=== PATIENT | female | born 1945 | race Caucasian/White ===

== ENCOUNTER 2018-02-13 08:04 | Emergency (ER) | payer MEDICARE ==
[~2018-02-13] VITALS: Ht 154.9 cm; Wt 89.2 kg
[~2018-02-13 08:04] MED LIST: ALLO100T PO; ASPI81TA47 PO; CETI-102 PO; DILT180C66 PO; ESTR0.5T4 PO; GABA300C PO; GLIP10TA3 PO; HYDR-565 PO; LANTUS SUBCUT; LOSA100T3 PO; MEDR2.5T PO; METF500T4 PO; OMEP-50 PO; PRAV40TA PO; TRAZ-143 PO
[2018-02-13 09:48] LABS: BASOPHILS # (AUTO) 0.1 X10'3 (0-0.2); BASOPHILS % (AUTO) 0.5 % (0-1); EOSINOPHILS % (AUTO) 0 % (0-6); HEMOGLOBIN 11.6 g/dl (12.0-16.0); LYMPHOCYTES # (AUTO) 3.4 X10'3 (1.1-4.8); LYMPHOCYTES % (AUTO) 20.7 % (21-51); MEAN CORPUSCULAR HEMOGLOBIN 32.5 PG (27.0-31.0); MEAN CORPUSCULAR HGB CONC 34.2 % (33.0-36.5); MEAN PLATELET VOLUME 8.8 FL (7.4-10.4); MONOCYTES # (AUTO) 0.7 X10'3 (0-0.9); MONOCYTES % (AUTO) 4.1 % (2-12); NEUTROPHILS # (AUTO) 12.2 X10'3 (1.8-7.7); NEUTROPHILS % (AUTO) 74.7 % (42-75); PLATELET COUNT 206 X10'3 (140-440); RED BLOOD COUNT 3.57 X10'6 (4.20-5.60); WHITE BLOOD COUNT 16.3 X10'3 (4.5-11.0)
[2018-02-13 09:58] LABS: PARTIAL THROMBOPLASTIN TIME 23 SECONDS (22-32); PROTHROMBIN TIME 10.8 SECONDS (9.0-12.0)
[2018-02-13 10:04] LABS: ALBUMIN 3.6 G/DL (3.4-5.0); ANION GAP 14 (8-16); BLOOD UREA NITROGEN 32 MG/DL (7-18); BUN/CREATININE RATIO 20.3 (6.6-38.0); CALCIUM 9.1 MG/DL (8.5-10.1); CHLORIDE 104 MMOL/L (99-107); CREATININE 1.58 MG/DL (0.40-0.90); GLUCOSE 338 MG/DL (70-104); POTASSIUM 5.3 MMOL/L (3.5-5.1); SODIUM 140 MMOL/L (135-145); TOTAL CARBON DIOXIDE 22.5 MMOL/L (24-32); eGFR 32 ML/MIN
[2018-02-13] MEDS ORDERED: normal saline 1000ML IV soln IVB ONE (10:35)
[2018-02-13] MEDS ORDERED: sodium polystyrene sulfonate 15gm/60ml oral suspension PO ONE (10:35)
[2018-02-13] MEDS: normal saline 1000ml 1,000 ML IV SCH ×2 (11:07→12:03)
[2018-02-13 12:02] VITALS: BP 157/75
== END 2018-02-13 12:03 | disposition home or self-care (01) ==
LOC: ER 08:04
DX: S00.83XA Contusion of other part of head, initial encounter (principal); E87.5 Hyperkalemia; E11.22 Type 2 diabetes mellitus with diabetic chronic kidney disease; N18.3 Chronic kidney disease, stage 3 (moderate); K21.9 Gastro-esophageal reflux disease without esophagitis; J44.9 Chronic obstructive pulmonary disease, unspecified; M54.2 Cervicalgia; M25.511 Pain in right shoulder; E78.00 Pure hypercholesterolemia, unspecified; Z79.4 Long term (current) use of insulin; Z98.890 Other specified postprocedural states; W06.XXXA Fall from bed, initial encounter; Y93.89 Activity, other specified; Y92.89 Other specified places as the place of occurrence of the external cause; Y99.8 Other external cause status
CPT/HCPCS: 36415; 70450; 72125; 73030; 80048; 85025; 85610; 85730; 93005; 96360; 99285; J7030

== ENCOUNTER 2018-10-25 09:06 | Day surgery (SDC) | payer MEDICARE ==
[~2018-10-25 09:06] MED LIST changes: +HYDR-4353 PO; -HYDR-565 PO; +METF-436 PO; -METF500T4 PO; -TRAZ-143 PO; +TRAZ-218 PO
[2018-10-25] MEDS ORDERED: BECL7.3A INH (15:07)
== END 2018-10-25 11:48 | disposition home or self-care (01) ==
LOC: WOUND CARE 09:06
PROVIDERS: ATTEND Surgery
DX: E11.621 Type 2 diabetes mellitus with foot ulcer (principal); L97.411 Non-pressure chronic ulcer of right heel and midfoot limited to breakdown of skin; L97.421 Non-pressure chronic ulcer of left heel and midfoot limited to breakdown of skin; L97.521 Non-pressure chronic ulcer of other part of left foot limited to breakdown of skin; E11.22 Type 2 diabetes mellitus with diabetic chronic kidney disease; I12.9 Hypertensive chronic kidney disease with stage 1 through stage 4 chronic kidney disease, or unspecified chronic kidney disease; N18.3 Chronic kidney disease, stage 3 (moderate); E11.42 Type 2 diabetes mellitus with diabetic polyneuropathy; M10.9 Gout, unspecified; G47.30 Sleep apnea, unspecified; J44.9 Chronic obstructive pulmonary disease, unspecified; K21.9 Gastro-esophageal reflux disease without esophagitis; E78.5 Hyperlipidemia, unspecified; Z87.891 Personal history of nicotine dependence; Z90.49 Acquired absence of other specified parts of digestive tract
CPT/HCPCS: 36416; 82948; 97597; A6021; A6196; A6206

== ENCOUNTER 2018-11-01 09:00 | Day surgery (SDC) | payer MEDICARE ==
[~2018-11-01 09:00] MED LIST changes: -ALLO100T PO; +BECL7.3A INH; -CETI-102 PO; -DILT180C66 PO; -GABA300C PO; -GLIP10TA3 PO; -MEDR2.5T PO; -METF-436 PO; -PRAV40TA PO
[2018-11-01] MEDS ORDERED: LIDOcaine/PRILOcaine 5gm cream TP ONE (10:09)
== END 2018-11-01 11:15 | disposition home or self-care (01) ==
LOC: WOUND CARE 09:00
PROVIDERS: ATTEND Surgery
DX: E11.621 Type 2 diabetes mellitus with foot ulcer (principal); L97.411 Non-pressure chronic ulcer of right heel and midfoot limited to breakdown of skin; L97.422 Non-pressure chronic ulcer of left heel and midfoot with fat layer exposed; L97.521 Non-pressure chronic ulcer of other part of left foot limited to breakdown of skin; L97.512 Non-pressure chronic ulcer of other part of right foot with fat layer exposed; E11.22 Type 2 diabetes mellitus with diabetic chronic kidney disease; I12.9 Hypertensive chronic kidney disease with stage 1 through stage 4 chronic kidney disease, or unspecified chronic kidney disease; N18.3 Chronic kidney disease, stage 3 (moderate); E11.42 Type 2 diabetes mellitus with diabetic polyneuropathy; M10.9 Gout, unspecified; G47.30 Sleep apnea, unspecified; J44.9 Chronic obstructive pulmonary disease, unspecified; K21.9 Gastro-esophageal reflux disease without esophagitis; E78.5 Hyperlipidemia, unspecified; Z87.891 Personal history of nicotine dependence; Z90.49 Acquired absence of other specified parts of digestive tract
CPT/HCPCS: 36416; 82948; 97597; A4414; A6021

== ENCOUNTER 2018-11-10 05:35 | Inpatient (IN) | payer MEDICARE ==
[~2018-11-10] VITALS: Ht 157.5 cm; Wt 90.9 kg
[2018-11-10] VITALS (17 sets, daily range): BP systolic 104–150; BP diastolic 39–73
[2018-11-10] MEDS ORDERED: octreotide inj. 1,250 MCG in normal saline 250ml IV soln 250 ML IV ONE (05:45)
[2018-11-10] MEDS ORDERED: normal saline 1000ML IV soln IV ONE (05:45)
[2018-11-10] MEDS ORDERED: tranexamic acid 100mg/ml inj. IV ONE ×2 (05:50→06:45)
[2018-11-10] MEDS ORDERED: pantoprazole 40 MG vial IV ONE ×2 (05:50→06:50)
[2018-11-10] MEDS ORDERED: tranexamic acid inj. 1,000 MG in normal saline 100ml IV soln 90 ML IV ONE (05:55)
[2018-11-10] MEDS ORDERED: ondansetron/PF 4mg/2ml inj IV ONE (05:55)
[2018-11-10 06:00] LABS: MEAN CORPUSCULAR HEMOGLOBIN 30.8 PG (27.0-31.0); MEAN CORPUSCULAR HGB CONC 33.1 % (33.0-36.5); MEAN PLATELET VOLUME 10.9 FL (7.4-10.4); PLATELET COUNT 214 X10'3 (140-440); RED BLOOD COUNT 2.27 X10'6 (4.20-5.60); RED CELL DISTRIBUTION WIDTH 13.9 % (11.5-14.5)
[2018-11-10] MEDS: pantoprazole 40MG/NS 100ML BAG 100 ML IV SCH ×5 (06:00→22:28)
[2018-11-10 06:21] LABS: ALANINE AMINOTRANSFERASE 16 U/L (12-78); ALBUMIN 2.7 G/DL (3.4-5.0); ALBUMIN/GLOBULIN RATIO 0.9 (1.1-1.5); ALKALINE PHOSPHATASE 32 IU/L (46-116); ANION GAP 15 (8-16); ASPARTATE AMINO TRANSFERASE 10 U/L (10-37); BILIRUBIN,TOTAL 0.3 MG/DL (0.1-1.0); BLOOD UREA NITROGEN 96 MG/DL (7-18); BUN/CREATININE RATIO 39.7 (6.6-38.0); CALCIUM 7.9 MG/DL (8.5-10.1); CHLORIDE 106 MMOL/L (99-107); CREATININE 2.42 MG/DL (0.40-0.90); GLUCOSE 333 MG/DL (70-104); POTASSIUM 4.6 MMOL/L (3.5-5.1); SODIUM 138 MMOL/L (135-145); TOTAL CARBON DIOXIDE 16.9 MMOL/L (24-32); TOTAL PROTEIN 5.6 G/DL (6.4-8.2); eGFR 20 ML/MIN
[2018-11-10 06:29] LABS: INR 1.2 INR; PARTIAL THROMBOPLASTIN TIME 21 SECONDS (22-32); PROTHROMBIN TIME 11.7 SECONDS (9.0-12.0); WHITE BLOOD COUNT 26.7 X10'3 (4.5-11.0)
[2018-11-10 06:30] LABS: HEMATOCRIT 21.1 % (35.0-45.0)
[2018-11-10 06:32] LABS: NUCLEATED RED BLOOD CELLS 2 /100WBC (0-0); PLATELET ESTIMATE NORMAL; TOTAL CELLS COUNTED 100
[2018-11-10 06:33] LABS: ANISOCYTOSIS 1+; LARGE PLATELETS MODERATE; POLYCHROMASIA FEW
[2018-11-10] MEDS ORDERED: LORazepam 2 mg/ml vial IV ONE (07:35)
[2018-11-10] MEDS ORDERED: PANT-47 PO (08:34)
[2018-11-10] MEDS ORDERED: KEN0.1O TP (08:34)
[2018-11-10] MEDS ORDERED: DILT180C53 PO (08:34)
[2018-11-10] MEDS ORDERED: FLUO15OI2 TP (08:34)
[2018-11-10] MEDS ORDERED: MECL12.584 PO (08:34)
[2018-11-10] MEDS ORDERED: ALLO100T PO (08:34)
[2018-11-10] MEDS ORDERED: ALBU6.7H INH (08:34)
[2018-11-10] MEDS ORDERED: MEDR2.5T7 PO (08:34)
[2018-11-10] MEDS ORDERED: acetaminophen 325mg tablet PO PRN ×2 (09:10)
[2018-11-10] MEDS ORDERED: potassium Cl 40MEQ/NS 500ml 500 ML IV PRN ×2 (09:10)
[2018-11-10] MEDS ORDERED: magnesium 4gm in 100ml NS 100 ML IV PRN (09:10)
[2018-11-10] MEDS ORDERED: magnesium Cl slow-release 64mg tablet PO PRN (09:10)
[2018-11-10] MEDS ORDERED: docusate sod 100mg capsule PO PRN (09:10)
[2018-11-10] MEDS ORDERED: ondansetron/PF 4mg/2ml inj IV PRN (09:10)
[2018-11-10] MEDS ORDERED: potassium Cl 20 mEq SR tablet PO PRN ×2 (09:10)
[2018-11-10] MEDS ORDERED: dextrose ORAL solution 15 GM/59 ML bottle PO PRN ×2 (09:25)
[2018-11-10] MEDS ORDERED: glucagon, human recombinant 1mg kit SUBCUT PRN (09:25)
[2018-11-10] MEDS ORDERED: MESSAGE TO PHARMACY PO ONE (09:25)
[2018-11-10] MEDS ORDERED: dextrose 50%-water 50ml dispensing syringe IV PRN ×2 (09:25)
[2018-11-10 09:38] LABS: HEMOGLOBIN A1C 9.5 % (4.5-6.2)
[2018-11-10 09:53] LABS: CLARITY,URINE CLEAR (Clear); COLOR,URINE STRAW (Yellow); PH,URINE 5.5 (4.8-8.0); UA COLLECTION TYPE FOLEY CATH
[2018-11-10 09:54] LABS: GLUCOSE, URINE NEGATIVE (Neg); KETONES,URINE NEGATIVE (Neg); LEUKOCYTE ESTERASE ,URINE NEGATIVE (Neg); NITRITES, URINE NEGATIVE (Neg); OCCULT BLOOD,URINE NEGATIVE (Neg); PROTEIN,URINE NEGATIVE (Neg); UROBILINOGEN,URINE 0.2 E.U/dL (0.2-1.0)
[2018-11-10] MEDS ORDERED: pantoprazole 40MG/NS 100ML BAG 100 ML IV SCH (11:00)
[2018-11-10] MEDS ORDERED: LIDOcaine Viscous 15ml cup ONE (14:01)
[2018-11-10] MEDS ORDERED: MIDAZolam 5mg/5ml vial ONE (14:01)
[2018-11-10] MEDS ORDERED: fentaNYL/PF 50MCG/1 ML 2ML syringe ONE (14:01)
[2018-11-10] MEDS ORDERED: epiNEPHrine 0.1mg/ml 10ml syringe ONE (16:06)
[2018-11-10 18:11] LABS: BASOPHILS # (AUTO) 0.1 X10'3 (0-0.2); BASOPHILS % (AUTO) 0.4 % (0-1); EOSINOPHILS % (AUTO) 0 % (0-6); HEMATOCRIT 27.3 % (35.0-45.0); LYMPHOCYTES # (AUTO) 2.8 X10'3 (1.1-4.8); MEAN CORPUSCULAR HEMOGLOBIN 29.6 PG (27.0-31.0); MEAN CORPUSCULAR HGB CONC 32.9 % (33.0-36.5); MEAN PLATELET VOLUME 10.6 FL (7.4-10.4); MONOCYTES # (AUTO) 1.3 X10'3 (0-0.9); MONOCYTES % (AUTO) 4.6 % (2-12); NEUTROPHILS # (AUTO) 23.7 X10'3 (1.8-7.7); PLATELET COUNT 199 X10'3 (140-440); RED BLOOD COUNT 3.04 X10'6 (4.20-5.60); RED CELL DISTRIBUTION WIDTH 17.3 % (11.5-14.5)
[2018-11-10 18:26] LABS: WHITE BLOOD COUNT 27.9 X10'3 (4.5-11.0)
[2018-11-10] MEDS: normal saline 1000ml 1,000 ML IV SCH ×2 (18:30→19:11)
[2018-11-10] MEDS: piperacillin/tazo 3.375gm/50ml 50 ML IV SCH ×2 (18:31→23:43)
[2018-11-10] MEDS: HYDROcodone/acetaminophen 5mg/325mg tablet PO PRN (18:49)
[2018-11-10] MEDS: budesonide 0.5mg/2ml UD nebule IH SCH (20:03)
[2018-11-10] MEDS: insulin glargine (Lantus) pen - multi-dose SQ SCH (21:00)
[2018-11-10] MEDS: morphine 2 MG/ML inj. syringe IV PRN (21:16)
[2018-11-10] MEDS: insulin Lispro (HumaLOG) vial - multi-dose SQ SCH (22:25)
[2018-11-10] MEDS: temazepam 15mg capsule PO PRN (22:28)
[2018-11-11] VITALS (8 sets, daily range): BP systolic 122–161; BP diastolic 47–97
[2018-11-11] MEDS: pantoprazole 40MG/NS 100ML BAG 100 ML IV SCH ×5 (04:00→21:56)
[2018-11-11] MEDS: normal saline 1000ml 1,000 ML IV SCH ×2 (05:29→16:34)
[2018-11-11 06:52] LABS: BASOPHILS # (AUTO) 0.1 X10'3 (0-0.2); BASOPHILS % (AUTO) 0.2 % (0-1); EOSINOPHILS # (AUTO) 0.3 X10'3 (0-0.9); EOSINOPHILS % (AUTO) 1.1 % (0-6); HEMOGLOBIN 7.3 g/dl (12.0-16.0); LYMPHOCYTES # (AUTO) 3.1 X10'3 (1.1-4.8); LYMPHOCYTES % (AUTO) 13.4 % (21-51); MEAN CORPUSCULAR HEMOGLOBIN 30.1 PG (27.0-31.0); MEAN CORPUSCULAR HGB CONC 33.6 % (33.0-36.5); MEAN CORPUSCULAR VOLUME 89.6 FL (78-98); MEAN PLATELET VOLUME 10.1 FL (7.4-10.4); MONOCYTES # (AUTO) 1.2 X10'3 (0-0.9); MONOCYTES % (AUTO) 5.1 % (2-12); NEUTROPHILS # (AUTO) 18.6 X10'3 (1.8-7.7); NEUTROPHILS % (AUTO) 80.2 % (42-75); PLATELET COUNT 183 X10'3 (140-440); RED BLOOD COUNT 2.42 X10'6 (4.20-5.60); RED CELL DISTRIBUTION WIDTH 17.2 % (11.5-14.5); WHITE BLOOD COUNT 23.2 X10'3 (4.5-11.0)
[2018-11-11 06:55] LABS: ALANINE AMINOTRANSFERASE 16 U/L (12-78); ALBUMIN 2.8 G/DL (3.4-5.0); ALBUMIN/GLOBULIN RATIO 0.9 (1.1-1.5); ALKALINE PHOSPHATASE 29 IU/L (46-116); ANION GAP 14 (8-16); ASPARTATE AMINO TRANSFERASE 16 U/L (10-37); BILIRUBIN,TOTAL 0.4 MG/DL (0.1-1.0); BLOOD UREA NITROGEN 65 MG/DL (7-18); BUN/CREATININE RATIO 36.1 (6.6-38.0); CALCIUM 7.7 MG/DL (8.5-10.1); CHLORIDE 112 MMOL/L (99-107); GLUCOSE 263 MG/DL (70-104); MAGNESIUM 1.9 MG/DL (1.5-2.4); POTASSIUM 4.8 MMOL/L (3.5-5.1); SODIUM 145 MMOL/L (135-145); TOTAL CARBON DIOXIDE 18.6 MMOL/L (24-32); TOTAL PROTEIN 5.8 G/DL (6.4-8.2); eGFR 28 ML/MIN
[2018-11-11 07:17] LABS: HEMATOCRIT 21.7 % (35.0-45.0)
[2018-11-11] MEDS: morphine 2 MG/ML inj. syringe IV PRN ×2 (07:44→19:02)
[2018-11-11] MEDS: piperacillin/tazo 3.375gm/50ml 50 ML IV SCH ×2 (08:00→16:24)
[2018-11-11] MEDS: losartan 50mg tablet PO SCH (08:00)
[2018-11-11] MEDS: budesonide 0.5mg/2ml UD nebule IH SCH ×2 (08:00→20:00)
[2018-11-11] MEDS: K and/or MAG REPLACEMENT MC SCH (08:00)
[2018-11-11] MEDS: HYDROcodone/acetaminophen 5mg/325mg tablet PO PRN ×3 (09:26→21:54)
[2018-11-11 10:07] LABS: ANISOCYTOSIS 1+; NUCLEATED RED BLOOD CELLS 1 /100WBC (0-0); PLATELET ESTIMATE NORMAL; POLYCHROMASIA 2+; TOTAL CELLS COUNTED 100
[2018-11-11] MEDS: insulin Lispro (HumaLOG) vial - multi-dose SQ SCH ×2 (17:16→21:49)
[2018-11-11 17:20] LABS: HEMATOCRIT 23.8 % (35.0-45.0); HEMOGLOBIN 7.9 g/dl (12.0-16.0); MEAN CORPUSCULAR HEMOGLOBIN 29.4 PG (27.0-31.0); PLATELET COUNT 153 X10'3 (140-440); RED BLOOD COUNT 2.67 X10'6 (4.20-5.60); RED CELL DISTRIBUTION WIDTH 17.4 % (11.5-14.5); WHITE BLOOD COUNT 16.4 X10'3 (4.5-11.0)
[2018-11-11] MEDS: insulin glargine (Lantus) pen - multi-dose SQ SCH (21:52)
[2018-11-11] MEDS: temazepam 15mg capsule PO PRN (21:54)
[2018-11-12] MEDS: piperacillin/tazo 3.375gm/50ml 50 ML IV SCH ×4 (00:32→23:48)
[2018-11-12 03:00] VITALS: BP 132/54
[2018-11-12] MEDS: pantoprazole 40MG/NS 100ML BAG 100 ML IV SCH ×6 (03:11→23:48)
[2018-11-12] MEDS: HYDROcodone/acetaminophen 5mg/325mg tablet PO PRN ×2 (04:08→14:30)
[2018-11-12 06:10] LABS: BASOPHILS # (AUTO) 0.1 X10'3 (0-0.2); BASOPHILS % (AUTO) 0.4 % (0-1); EOSINOPHILS # (AUTO) 0.2 X10'3 (0-0.9); EOSINOPHILS % (AUTO) 1.4 % (0-6); HEMATOCRIT 25.3 % (35.0-45.0); HEMOGLOBIN 8.3 g/dl (12.0-16.0); LYMPHOCYTES # (AUTO) 3.1 X10'3 (1.1-4.8); LYMPHOCYTES % (AUTO) 17.7 % (21-51); MEAN CORPUSCULAR HEMOGLOBIN 29.5 PG (27.0-31.0); MEAN CORPUSCULAR HGB CONC 32.9 % (33.0-36.5); MEAN CORPUSCULAR VOLUME 89.8 FL (78-98); MEAN PLATELET VOLUME 9.6 FL (7.4-10.4); MONOCYTES # (AUTO) 0.8 X10'3 (0-0.9); MONOCYTES % (AUTO) 4.5 % (2-12); NEUTROPHILS # (AUTO) 13.2 X10'3 (1.8-7.7); PLATELET COUNT 155 X10'3 (140-440); RED BLOOD COUNT 2.82 X10'6 (4.20-5.60); RED CELL DISTRIBUTION WIDTH 17.5 % (11.5-14.5); WHITE BLOOD COUNT 17.4 X10'3 (4.5-11.0)
[2018-11-12 06:21] LABS: ALANINE AMINOTRANSFERASE 16 U/L (12-78); ALBUMIN 3.1 G/DL (3.4-5.0); ALKALINE PHOSPHATASE 37 IU/L (46-116); ANION GAP 13 (8-16); ASPARTATE AMINO TRANSFERASE 19 U/L (10-37); BILIRUBIN,TOTAL 0.6 MG/DL (0.1-1.0); BLOOD UREA NITROGEN 32 MG/DL (7-18); BUN/CREATININE RATIO 22.7 (6.6-38.0); CALCIUM 8.6 MG/DL (8.5-10.1); CHLORIDE 112 MMOL/L (99-107); CHOL/HDL RATIO 4.3 (0.00-4.99); CHOLESTEROL 119 MG/DL (0-200); CREATININE 1.41 MG/DL (0.40-0.90); GLUCOSE 179 MG/DL (70-104); HDL CHOLESTEROL 28 MG/DL (35-60); LDL CHOLESTEROL 52 MG/DL (50-100); MAGNESIUM 1.9 MG/DL (1.5-2.4); POTASSIUM 3.9 MMOL/L (3.5-5.1); SODIUM 146 MMOL/L (135-145); TOTAL PROTEIN 6.3 G/DL (6.4-8.2); TRIGLYCERIDES 272 MG/DL (20-135); eGFR 37 ML/MIN
[2018-11-12 07:00] VITALS: BP 177/68
[2018-11-12] MEDS: budesonide 0.5mg/2ml UD nebule IH SCH ×2 (07:35→21:02)
[2018-11-12] MEDS: albuterol 2.5 MG/3 ML nebule NEB PRN (07:36)
[2018-11-12] MEDS: K and/or MAG REPLACEMENT MC SCH (08:00)
[2018-11-12 08:14] LABS: ANISOCYTOSIS 1+; LARGE PLATELETS FEW; NUCLEATED RED BLOOD CELLS 2 /100WBC (0-0); PLATELET ESTIMATE NORMAL; POIKILOCYTOSIS FEW; POLYCHROMASIA 1+; TARGET CELLS FEW; TOTAL CELLS COUNTED 100
[2018-11-12] MEDS: losartan 50mg tablet PO SCH (09:00)
[2018-11-12] MEDS: insulin Lispro (HumaLOG) vial - multi-dose SQ SCH ×3 (09:09→19:08)
[2018-11-12 12:06] VITALS: BP 134/47
[2018-11-12] MEDS: normal saline 1000ml 1,000 ML IV SCH (12:55)
[2018-11-12] MEDS ORDERED: PREG100C PO ×2 (14:43)
[2018-11-12] MEDS ORDERED: pregabalin 75mg capsule PO ONE (14:45)
[2018-11-12] MEDS ORDERED: pregabalin 25mg capsule PO ONE (14:55)
[2018-11-12 15:00] VITALS: BP 132/44
[2018-11-12 18:45] VITALS: BP 142/51
[2018-11-12] MEDS: morphine 2 MG/ML inj. syringe IV PRN (19:09)
[2018-11-12] MEDS: insulin glargine (Lantus) pen - multi-dose SQ SCH (21:07)
[2018-11-12] MEDS: pregabalin 75mg capsule PO SCH (21:09)
[2018-11-12] MEDS: pregabalin 25mg capsule PO SCH (21:09)
[2018-11-12] MEDS: temazepam 15mg capsule PO PRN (21:09)
[2018-11-12 22:15] VITALS: BP 131/51
[2018-11-13] VITALS (7 sets, daily range): BP systolic 141–175; BP diastolic 49–66
[2018-11-13] MEDS: pantoprazole 40MG/NS 100ML BAG 100 ML IV SCH ×4 (04:19→19:32)
[2018-11-13] MEDS: normal saline 1000ml 1,000 ML IV SCH ×2 (04:19→19:32)
[2018-11-13 05:26] LABS: BASOPHILS % (AUTO) 0.2 % (0-1); EOSINOPHILS # (AUTO) 0.1 X10'3 (0-0.9); EOSINOPHILS % (AUTO) 0.9 % (0-6); HEMATOCRIT 24.3 % (35.0-45.0); LYMPHOCYTES # (AUTO) 3.9 X10'3 (1.1-4.8); LYMPHOCYTES % (AUTO) 27.9 % (21-51); MEAN CORPUSCULAR HEMOGLOBIN 29.9 PG (27.0-31.0); MEAN CORPUSCULAR HGB CONC 33.1 % (33.0-36.5); MEAN CORPUSCULAR VOLUME 90.4 FL (78-98); MEAN PLATELET VOLUME 9.6 FL (7.4-10.4); MONOCYTES # (AUTO) 0.7 X10'3 (0-0.9); MONOCYTES % (AUTO) 5.1 % (2-12); NEUTROPHILS # (AUTO) 9.3 X10'3 (1.8-7.7); NEUTROPHILS % (AUTO) 65.9 % (42-75); PLATELET COUNT 143 X10'3 (140-440); RED BLOOD COUNT 2.69 X10'6 (4.20-5.60); RED CELL DISTRIBUTION WIDTH 17.4 % (11.5-14.5); WHITE BLOOD COUNT 14.1 X10'3 (4.5-11.0)
[2018-11-13 05:43] LABS: ALANINE AMINOTRANSFERASE 21 U/L (12-78); ALKALINE PHOSPHATASE 32 IU/L (46-116); ANION GAP 11 (8-16); ASPARTATE AMINO TRANSFERASE 25 U/L (10-37); BILIRUBIN,TOTAL 0.6 MG/DL (0.1-1.0); BLOOD UREA NITROGEN 19 MG/DL (7-18); BUN/CREATININE RATIO 14.1 (6.6-38.0); CALCIUM 8.4 MG/DL (8.5-10.1); CHLORIDE 111 MMOL/L (99-107); CREATININE 1.35 MG/DL (0.40-0.90); GLUCOSE 176 MG/DL (70-104); MAGNESIUM 1.8 MG/DL (1.5-2.4); POTASSIUM 3.6 MMOL/L (3.5-5.1); SODIUM 144 MMOL/L (135-145); TOTAL CARBON DIOXIDE 21.9 MMOL/L (24-32); TOTAL PROTEIN 6.1 G/DL (6.4-8.2); eGFR 39 ML/MIN
[2018-11-13] MEDS: K and/or MAG REPLACEMENT MC SCH (08:00)
[2018-11-13] MEDS: pregabalin 75mg capsule PO SCH ×2 (08:09→21:23)
[2018-11-13] MEDS: pregabalin 25mg capsule PO SCH ×2 (08:09→21:23)
[2018-11-13] MEDS: losartan 50mg tablet PO SCH (08:09)
[2018-11-13] MEDS: piperacillin/tazo 3.375gm/50ml 50 ML IV SCH ×3 (08:09→23:28)
[2018-11-13] MEDS: albuterol 2.5 MG/3 ML nebule NEB PRN (08:20)
[2018-11-13] MEDS: budesonide 0.5mg/2ml UD nebule IH SCH ×2 (08:20→20:16)
[2018-11-13] MEDS: insulin Lispro (HumaLOG) vial - multi-dose SQ SCH ×3 (08:44→18:26)
[2018-11-13] MEDS: HYDROcodone/acetaminophen 5mg/325mg tablet PO PRN (11:31)
[2018-11-13] MEDS ORDERED: morphine 4 MG/ML inj SYRINge IV PRN (15:52)
[2018-11-13] MEDS ORDERED: sucralfate 1gm/10ml UD suspension PO PRN (19:20)
[2018-11-13] MEDS: lactobacillus rhamnosus 10,000 MMU CELLS/CAPSULE PO SCH (19:33)
[2018-11-13] MEDS: insulin glargine (Lantus) pen - multi-dose SQ SCH (21:26)
[2018-11-13] MEDS ORDERED: losartan 50mg tablet PO ONE (23:15)
[2018-11-14] MEDS: pantoprazole 40MG/NS 100ML BAG 100 ML IV SCH ×2 (01:04→05:55)
[2018-11-14 03:00] VITALS: BP 168/59
[2018-11-14 03:58] VITALS: BP 141/68
[2018-11-14 06:43] LABS: BASOPHILS % (AUTO) 0.3 % (0-1); EOSINOPHILS % (AUTO) 0 % (0-6); HEMATOCRIT 25.5 % (35.0-45.0); HEMOGLOBIN 8.4 g/dl (12.0-16.0); LYMPHOCYTES % (AUTO) 23.7 % (21-51); MEAN CORPUSCULAR HGB CONC 32.9 % (33.0-36.5); MEAN CORPUSCULAR VOLUME 91.1 FL (78-98); MEAN PLATELET VOLUME 9.8 FL (7.4-10.4); MONOCYTES # (AUTO) 0.9 X10'3 (0-0.9); MONOCYTES % (AUTO) 5.3 % (2-12); NEUTROPHILS # (AUTO) 11.9 X10'3 (1.8-7.7); NEUTROPHILS % (AUTO) 70.7 % (42-75); PLATELET COUNT 169 X10'3 (140-440); RED CELL DISTRIBUTION WIDTH 17.3 % (11.5-14.5); WHITE BLOOD COUNT 16.8 X10'3 (4.5-11.0)
[2018-11-14 07:32] VITALS: BP 161/46
[2018-11-14 07:33] LABS: ALANINE AMINOTRANSFERASE 20 U/L (12-78); ALBUMIN 3.1 G/DL (3.4-5.0); ALKALINE PHOSPHATASE 35 IU/L (46-116); ANION GAP 14 (8-16); ASPARTATE AMINO TRANSFERASE 24 U/L (10-37); BILIRUBIN,TOTAL 0.6 MG/DL (0.1-1.0); BLOOD UREA NITROGEN 14 MG/DL (7-18); BUN/CREATININE RATIO 10.1 (6.6-38.0); CALCIUM 8.6 MG/DL (8.5-10.1); CHLORIDE 110 MMOL/L (99-107); CREATININE 1.39 MG/DL (0.40-0.90); GLUCOSE 186 MG/DL (70-104); MAGNESIUM 1.8 MG/DL (1.5-2.4); POTASSIUM 3.5 MMOL/L (3.5-5.1); SODIUM 145 MMOL/L (135-145); TOTAL PROTEIN 6.2 G/DL (6.4-8.2); eGFR 37 ML/MIN
[2018-11-14] MEDS: K and/or MAG REPLACEMENT MC SCH (07:39)
[2018-11-14] MEDS: albuterol 2.5 MG/3 ML nebule NEB PRN (08:51)
[2018-11-14] MEDS: budesonide 0.5mg/2ml UD nebule IH SCH (08:51)
[2018-11-14] MEDS: piperacillin/tazo 3.375gm/50ml 50 ML IV SCH (08:59)
[2018-11-14] MEDS: pregabalin 25mg capsule PO SCH (08:59)
[2018-11-14] MEDS: lactobacillus rhamnosus 10,000 MMU CELLS/CAPSULE PO SCH (08:59)
[2018-11-14] MEDS: losartan 50mg tablet PO SCH (08:59)
[2018-11-14] MEDS: pregabalin 75mg capsule PO SCH (09:00)
[2018-11-14] MEDS ORDERED: mag hydrox/Alum hydrox/simeth 30ml oral suspension PO ONE (09:15)
[2018-11-14] MEDS: insulin Lispro (HumaLOG) vial - multi-dose SQ SCH (09:29)
[2018-11-14] MEDS ORDERED: PANT-47 PO (10:12)
== END 2018-11-14 10:42 | disposition home health service (06) | DRG 871 ==
LOC: ER 05:36 → ED HOLD 09:10 → PCU 3S 17:30
PROVIDERS: ADMIT Internal Medicine; ATTEND Family Medicine
PROC: 0W3P8ZZ Control Bleeding in Gastrointestinal Tract, Via Natural or Artificial Opening Endoscopic (ICD-10-PCS; principal; 2018-11-10)
PROC: 30233N1 Transfusion of Nonautologous Red Blood Cells into Peripheral Vein, Percutaneous Approach (ICD-10-PCS; 2018-11-10)
PROC: 30233N1 Transfusion of Nonautologous Red Blood Cells into Peripheral Vein, Percutaneous Approach (ICD-10-PCS; 2018-11-11)
PROC: 5A09357 Assistance with Respiratory Ventilation, Less than 24 Consecutive Hours, Continuous Positive Airway Pressure (ICD-10-PCS; 2018-11-11)
PROC: 5A09357 Assistance with Respiratory Ventilation, Less than 24 Consecutive Hours, Continuous Positive Airway Pressure (ICD-10-PCS; 2018-11-13)
DX: A41.9 Sepsis, unspecified organism (principal); K31.82 Dieulafoy lesion (hemorrhagic) of stomach and duodenum; N18.4 Chronic kidney disease, stage 4 (severe); N17.9 Acute kidney failure, unspecified; E11.22 Type 2 diabetes mellitus with diabetic chronic kidney disease; E78.00 Pure hypercholesterolemia, unspecified; E78.5 Hyperlipidemia, unspecified; E11.65 Type 2 diabetes mellitus with hyperglycemia; D50.0 Iron deficiency anemia secondary to blood loss (chronic); E86.0 Dehydration; F32.9 Major depressive disorder, single episode, unspecified; I25.10 Atherosclerotic heart disease of native coronary artery without angina pectoris; J44.9 Chronic obstructive pulmonary disease, unspecified; K21.9 Gastro-esophageal reflux disease without esophagitis; Z79.51 Long term (current) use of inhaled steroids; Z79.82 Long term (current) use of aspirin; Z79.899 Other long term (current) drug therapy; Z79.4 Long term (current) use of insulin; S91.102D Unspecified open wound of left great toe without damage to nail, subsequent encounter; S91.101D Unspecified open wound of right great toe without damage to nail, subsequent encounter; Z87.891 Personal history of nicotine dependence
CPT/HCPCS: 36415; 36430; 71045; 76700; 80053; 80061; 81003; 82948; 83036; 83605; 83735; 84145; 85025; 85027; 85610; 85730; 86885; 86900; 86901; 86920; 87040; 87070; 94640; 94760; 96365; 96366; 96368; 96375; 99152; 99153; 99291; A4620; C9113; G0378; J0171; J1815; J2060; J2250; J2270; J2354; J2405; J2543; J3010; J7030; J7626; P9016

== ENCOUNTER 2018-12-04 10:20 | Outpatient (CLI) | payer MEDICARE ==
[~2018-12-04 10:20] MED LIST changes: +ALBU6.7H INH; +ALLO100T PO; -ASPI81TA47 PO; +DILT180C53 PO; +FLUO15OI2 TP; +KEN0.1O TP; +MECL12.584 PO; +MEDR2.5T7 PO; -OMEP-50 PO; +PANT-47 PO; +PREG100C PO
--- NOTE | 2018-12-04 12:02 | NUR ---
Patient ambulated independently from [facility] and was admitted to outpatient wound care for physician visit with Carlton Roberts MD. Dressing removed, wound cleansed and lidocaine applied per order. Patient assessed for changes in conditions, medications and medical history. [id number] Patient instructed that elevated blood sugars delay healing of the wound and can cause further complications including but not limited to amputation of toes or feet. Dr. Roberts at bedside accompanied by RN. Wound assessed, time out performed by MD/RN. Wound debrided as detailed in the physician progress/procedure note. Plan of care discussed with patient. Dressings placed per MD orders. Patient instructed on the signs and symptoms of infection and to call the [facility]ound Center if any occur or to go to the ED if we are closed: Increased pain in wound Increase in drainage from the wound Redness in the skin surrounding the wound Bleeding from the wound Temperature of 101 or greater Patient instructed that the weight of their body puts a large amount of pressure on their wounds. This pressure keeps the new tissue from growing and inhibits new blood vessels from forming. Explained that, if they continue to bear weight on a body part that has a wound, the time it takes to heal the wound increases, the wound may get worse or the wound may not heal at all. Patient verbalized understanding of all discharge instructions and plan of care and ambulated independently out to [facility] in stable condition with no sign or symptom of distress at time of discharge. Addendum: 12/04/18 at 1206 by Beatriz Aldana RN Amended: Links added.
== END 2018-12-04 11:07 | disposition home or self-care (01) ==
LOC: WOUND CARE 10:20 → EDSTATUS 10:30 → WOUND CARE 11:07
PROVIDERS: ATTEND Surgery
DX: E11.621 Type 2 diabetes mellitus with foot ulcer (principal); L97.411 Non-pressure chronic ulcer of right heel and midfoot limited to breakdown of skin; L97.422 Non-pressure chronic ulcer of left heel and midfoot with fat layer exposed; L97.521 Non-pressure chronic ulcer of other part of left foot limited to breakdown of skin; L97.512 Non-pressure chronic ulcer of other part of right foot with fat layer exposed; E11.22 Type 2 diabetes mellitus with diabetic chronic kidney disease; I12.9 Hypertensive chronic kidney disease with stage 1 through stage 4 chronic kidney disease, or unspecified chronic kidney disease; N18.3 Chronic kidney disease, stage 3 (moderate); E11.42 Type 2 diabetes mellitus with diabetic polyneuropathy; M10.9 Gout, unspecified; G47.30 Sleep apnea, unspecified; J44.9 Chronic obstructive pulmonary disease, unspecified; K21.9 Gastro-esophageal reflux disease without esophagitis; E78.5 Hyperlipidemia, unspecified; Z87.891 Personal history of nicotine dependence; Z90.49 Acquired absence of other specified parts of digestive tract
CPT/HCPCS: 36416; 82948; G0463

== ENCOUNTER 2018-12-28 22:12 | Inpatient (IN) | payer MEDICARE | END 2018-12-31 14:00 | disposition home or self-care (01) | LOC: ED HOLD 12-29 02:25 → ER 22:12 → SUR 3N 12-29 04:45 ==

== ENCOUNTER 2019-02-23 11:11 | Emergency (ER) | payer MEDICARE ==
[~2019-02-23] VITALS: Ht 154.9 cm; Wt 90.9 kg
[~2019-02-23 11:11] MED LIST changes: +ASPI81TA52 PO; +INSU100I25 SQ; +INSU100I8; -LANTUS SUBCUT; +LEVO500T2 PO; -MECL12.584 PO; -PREG100C PO; +PREG150C; +PREG150C PO; -TRAZ-218 PO; +TRAZ-219 PO
[2019-02-23 13:01] LABS: EOSINOPHILS % (AUTO) 0 % (0-6); HEMOGLOBIN 9.4 g/dl (12.0-16.0); MEAN PLATELET VOLUME 8.6 FL (7.4-10.4); MONOCYTES # (AUTO) 0.9 X10'3 (0-0.9)
[2019-02-23 13:03] LABS: BASOPHILS # (AUTO) 0.2 X10'3 (0-0.2); BASOPHILS % (AUTO) 1.1 % (0-1); HEMATOCRIT 28.4 % (35.0-45.0); LYMPHOCYTES # (AUTO) 2.6 X10'3 (1.1-4.8); LYMPHOCYTES % (AUTO) 17.1 % (21-51); MEAN CORPUSCULAR HEMOGLOBIN 24.3 PG (27.0-31.0); MEAN CORPUSCULAR HGB CONC 33.3 g/dL (33.0-36.5); MEAN CORPUSCULAR VOLUME 73.1 FL (78-98); NEUTROPHILS # (AUTO) 11.5 X10'3 (1.8-7.7); NEUTROPHILS % (AUTO) 75.8 % (42-75); PLATELET COUNT 163 X10'3 (140-440); RED BLOOD COUNT 3.88 X10'6 (4.20-5.60); RED CELL DISTRIBUTION WIDTH 23.9 % (11.5-14.5); WHITE BLOOD COUNT 15.1 X10'3 (4.5-11.0)
--- NOTE | 2019-02-23 13:09 | NUR ---
patient assistd to [facility].
[2019-02-23 13:19] LABS: INR 1.1 INR; PARTIAL THROMBOPLASTIN TIME 26 SECONDS (22-32); PROTHROMBIN TIME 11.2 SECONDS (9.0-12.0)
[2019-02-23 13:35] LABS: ANISOCYTOSIS 3+; HYPOCHROMASIA 1+; MICROCYTOSIS 1+; PLATELET ESTIMATE NORMAL; POLYCHROMASIA 1+
[2019-02-23] MEDS ORDERED: morphine 4 MG/ML inj SYRINge IV ONE (13:40)
[2019-02-23 14:21] LABS: ALANINE AMINOTRANSFERASE 19 U/L (12-78); ALBUMIN 3.2 G/DL (3.4-5.0); ALBUMIN/GLOBULIN RATIO 0.9 (1.1-1.5); ALKALINE PHOSPHATASE 60 IU/L (46-116); ANION GAP 9 (8-16); ASPARTATE AMINO TRANSFERASE 13 U/L (10-37); BILIRUBIN,TOTAL 0.3 MG/DL (0.1-1.0); BLOOD UREA NITROGEN 20 MG/DL (7-18); CALCIUM 8.6 MG/DL (8.5-10.1); CHLORIDE 103 MMOL/L (99-107); CREATININE 1.54 MG/DL (0.40-0.90); GLUCOSE 292 MG/DL (70-104); POTASSIUM 4.2 MMOL/L (3.5-5.1); SODIUM 136 MMOL/L (135-145); TOTAL CARBON DIOXIDE 24.4 MMOL/L (24-32); TOTAL PROTEIN 6.8 G/DL (6.4-8.2); eGFR 33 ML/MIN
[2019-02-23] MEDS ORDERED: iohexol 350MG/ML 100ml bottle IV ONE (15:13)
[2019-02-23 16:08] LABS: CLARITY,URINE CLEAR (Clear); COLOR,URINE YELLOW (Yellow); GLUCOSE, URINE 100 mg/dl (Neg); KETONES,URINE NEGATIVE (Neg); LEUKOCYTE ESTERASE ,URINE NEGATIVE (Neg); NITRITES, URINE NEGATIVE (Neg); OCCULT BLOOD,URINE TRACE-INTACT (Neg); PH,URINE 6.5 (4.8-8.0); PROTEIN,URINE TRACE mg/dl (Neg); UROBILINOGEN,URINE 0.2 E.U/dL (0.2-1.0)
[2019-02-23 16:09] LABS: UA COLLECTION TYPE CLN CATCH MIDSTREAM
[2019-02-23] MEDS ORDERED: MORP15TA PO (16:12)
[2019-02-23] MEDS ORDERED: CETI-102 PO (16:12)
[2019-02-23] MEDS ORDERED: INSU100I29 SQ (16:12)
[2019-02-23] MEDS ORDERED: SENN-162 PO (16:12)
[2019-02-23] MEDS ORDERED: CLOB15OI3 TOP (16:12)
[2019-02-23] MEDS ORDERED: PRAV10TA39 PO (16:12)
[2019-02-23 16:16] LABS: MUCUS STRANDS NONE SEEN /LPF (Neg); SQUAMOUS EPITHELIAL CELL,UR FEW /LPF (FEW)
[2019-02-23 16:18] LABS: BACTERIA,URINE FEW /HPF (Neg); RBC,URINE 0-2 /HPF (0-2); WBC,URINE 0-4 /HPF (0-4)
[2019-02-23 16:22] LABS: HYALINE CASTS 0-3 /LPF (NEGATIVE)
[2019-02-23 17:11] VITALS: BP 160/72
== END 2019-02-23 17:12 | disposition home or self-care (01) ==
LOC: ER 11:11
DX: R06.02 Shortness of breath (principal); R42 Dizziness and giddiness; R05 Cough; E78.00 Pure hypercholesterolemia, unspecified; J44.9 Chronic obstructive pulmonary disease, unspecified; K21.9 Gastro-esophageal reflux disease without esophagitis; E11.9 Type 2 diabetes mellitus without complications; Z98.890 Other specified postprocedural states; Z88.5 Allergy status to narcotic agent; Z88.8 Allergy status to other drugs, medicaments and biological substances; Z79.4 Long term (current) use of insulin; Z79.899 Other long term (current) drug therapy; Z56.0 Unemployment, unspecified
CPT/HCPCS: 36415; 71046; 71275; 80053; 81001; 83880; 83930; 84484; 85025; 85610; 85730; 93005; 96374; 99284; J2270; Q9967

== ENCOUNTER 2019-03-29 08:16 | Inpatient (IN) | payer MEDICARE | END 2019-04-02 15:45 | LOC: ER 08:16 → ORTHO 4S 14:57 | DX: S72.114A Nondisplaced fracture of greater trochanter of right femur, initial encounter for closed fracture (principal); E66.01 Morbid (severe) obesity due to excess calories; Z68.35 Body mass index [BMI] 35.0-35.9, adult; I95.1 Orthostatic hypotension; K25.9 Gastric ulcer, unspecified as acute or chronic, without hemorrhage or perforation ==

== ENCOUNTER 2019-04-24 15:24 | Outpatient (CLI) | payer MEDICARE ==
[~2019-04-24 15:24] MED LIST changes: -ALBU6.7H INH; -ALLO100T PO; -ASPI81TA52 PO; -BECL7.3A INH; +CETI-102 PO; +CLOB15OI3 TOP; -FLUO15OI2 TP; -INSU100I25 SQ; +INSU100I29 SQ; -LEVO500T2 PO; +PRAV10TA39 PO; +SENN-162 PO
== END 2019-04-24 16:38 | disposition home or self-care (01) ==
LOC: ORTHO 15:24
PROVIDERS: ATTEND Orthopaedic Surgery
DX: S72.111D Displaced fracture of greater trochanter of right femur, subsequent encounter for closed fracture with routine healing (principal); J44.9 Chronic obstructive pulmonary disease, unspecified; I10 Essential (primary) hypertension; E11.9 Type 2 diabetes mellitus without complications; X58.XXXD Exposure to other specified factors, subsequent encounter
CPT/HCPCS: 73502; 99213

== ENCOUNTER 2020-03-02 11:26 | Emergency (ER) | payer MEDICARE ==
[~2020-03-02] VITALS: Ht 188 cm; Wt 200.0 kg
[~2020-03-02 11:26] MED LIST changes: -CETI-102 PO; +CETI-90 PO; -SENN-162 PO; +SENN-263 PO; -TRAZ-219 PO; +TRAZ-256 PO
[2020-03-02] MEDS ORDERED: LIDOcaine 5% patch TP STA (11:43)
[2020-03-02] MEDS ORDERED: BUPIVAcaine/PF 7.5mg/ml (0.75%) 10ml vial IJ ONE ×2 (11:45→12:10)
[2020-03-02] MEDS ORDERED: LIDO700A32 TOP (11:50)
--- NOTE | 2020-03-02 11:56 | NUR ---
TO X-RAY VIA W/C
[2020-03-02 13:09] VITALS: BP 146/66
== END 2020-03-02 13:11 | disposition home or self-care (01) ==
LOC: ER 11:27
DX: S40.012A Contusion of left shoulder, initial encounter (principal); E78.00 Pure hypercholesterolemia, unspecified; J44.9 Chronic obstructive pulmonary disease, unspecified; K21.9 Gastro-esophageal reflux disease without esophagitis; E11.9 Type 2 diabetes mellitus without complications; Z98.890 Other specified postprocedural states; Z88.5 Allergy status to narcotic agent; Z88.8 Allergy status to other drugs, medicaments and biological substances; Z79.4 Long term (current) use of insulin; Z79.899 Other long term (current) drug therapy; W18.09XA Striking against other object with subsequent fall, initial encounter; Y93.89 Activity, other specified; Y92.009 Unspecified place in unspecified non-institutional (private) residence as the place of occurrence of the external cause; Y99.8 Other external cause status
CPT/HCPCS: 20552; 73030; 99284

== ENCOUNTER 2020-08-18 16:58 | Emergency (ER) | payer MEDICARE ==
[~2020-08-18] VITALS: Ht 154.9 cm; Wt 100.8 kg
[~2020-08-18 16:58] MED LIST changes: +LIDO700A32 TOP
--- NOTE | 2020-08-18 17:56 | NUR ---
Disccused pt's c/o pain with PA Mccann; new order for morphine 4mg received.
[2020-08-18] MEDS ORDERED: morphine 4 MG/ML inj SYRINge IV ONE ×3 (18:00→21:10)
[2020-08-18 18:22] LABS: BASOPHILS # (AUTO) 0.2 X10'3 (0-0.2); BASOPHILS % (AUTO) 1.3 % (0-1); EOSINOPHILS % (AUTO) 0 % (0-6); HEMATOCRIT 31.1 % (35.0-45.0); HEMOGLOBIN 10.4 g/dl (12.0-16.0); LYMPHOCYTES # (AUTO) 2.6 X10'3 (1.1-4.8); LYMPHOCYTES % (AUTO) 18.4 % (21-51); MEAN CORPUSCULAR HEMOGLOBIN 29.4 PG (27.0-31.0); MEAN CORPUSCULAR HGB CONC 33.5 g/dL (33.0-36.5); MEAN CORPUSCULAR VOLUME 87.8 FL (78-98); MEAN PLATELET VOLUME 8.8 FL (7.4-10.4); MONOCYTES # (AUTO) 0.6 X10'3 (0-0.9); MONOCYTES % (AUTO) 4.4 % (2-12); NEUTROPHILS # (AUTO) 10.6 X10'3 (1.8-7.7); NEUTROPHILS % (AUTO) 75.9 % (42-75); PLATELET COUNT 116 X10'3 (140-440); RED BLOOD COUNT 3.54 X10'6 (4.20-5.60); RED CELL DISTRIBUTION WIDTH 24.2 % (11.5-14.5)
[2020-08-18 18:24] LABS: ALANINE AMINOTRANSFERASE 16 U/L (12-78); ALBUMIN 3.3 G/DL (3.4-5.0); ALBUMIN/GLOBULIN RATIO 0.9 (1.1-1.5); ALKALINE PHOSPHATASE 49 IU/L (46-116); ANION GAP 8 (8-16); ASPARTATE AMINO TRANSFERASE 14 U/L (10-37); BILIRUBIN,TOTAL 0.5 MG/DL (0.1-1.0); BLOOD UREA NITROGEN 32 MG/DL (7-18); BUN/CREATININE RATIO 18.1 (6.6-38.0); CALCIUM 8.4 MG/DL (8.5-10.1); CHLORIDE 106 MMOL/L (99-107); CREATININE 1.77 MG/DL (0.40-0.90); GLUCOSE 208 MG/DL (70-104); POTASSIUM 4.7 MMOL/L (3.5-5.1); SODIUM 141 MMOL/L (135-145); TOTAL CARBON DIOXIDE 27.3 MMOL/L (24-32); TOTAL PROTEIN 6.8 G/DL (6.4-8.2); eGFR 28 ML/MIN
[2020-08-18 18:42] LABS: ANISOCYTOSIS 3+; HYPOCHROMASIA 1+; MICROCYTOSIS 1+; PLATELET ESTIMATE DECREASED; POLYCHROMASIA FEW; SPHEROCYTES FEW; STOMATOCYTES 1+; TEAR DROP CELLS FEW
[2020-08-18 18:43] LABS: SCHISTOCYTES 1+
[2020-08-18] MEDS ORDERED: HYDR-4353 PO (20:10)
--- NOTE | 2020-08-18 20:50 | NUR ---
phoned pt home no answer will try again
--- NOTE | 2020-08-18 21:44 | NUR ---
pt pain has been at her right shoulder not her left as previous charted amendment . to previous chartted sites
--- NOTE | 2020-08-18 21:49 | NUR ---
spoke to patient . he will be here in 15-20 min for transportation home
[2020-08-18 22:05] VITALS: BP 139/45
== END 2020-08-18 22:00 | disposition home or self-care (01) ==
LOC: ER 16:59
DX: S42.211A Unspecified displaced fracture of surgical neck of right humerus, initial encounter for closed fracture (principal); E78.00 Pure hypercholesterolemia, unspecified; J44.9 Chronic obstructive pulmonary disease, unspecified; K21.9 Gastro-esophageal reflux disease without esophagitis; E11.9 Type 2 diabetes mellitus without complications; Z98.890 Other specified postprocedural states; Z88.5 Allergy status to narcotic agent; Z88.8 Allergy status to other drugs, medicaments and biological substances; Z79.4 Long term (current) use of insulin; Z79.899 Other long term (current) drug therapy; W19.XXXA Unspecified fall, initial encounter; Y93.89 Activity, other specified; Y92.89 Other specified places as the place of occurrence of the external cause; Y99.8 Other external cause status
CPT/HCPCS: 36415; 73030; 73200; 80053; 85025; 96374; 96376; 99285; J2270; 85008

== ENCOUNTER 2020-10-21 09:49 | Inpatient (IN) | payer MEDICARE ==
[~2020-10-21] VITALS: Ht 162.6 cm; Wt 98.0 kg
[2020-10-21] VITALS (11 sets, daily range): BP systolic 53–145; BP diastolic 29–72
[~2020-10-21 09:49] MED LIST changes: -INSU100I8; +INSU100I8 SQ; -LIDO700A32 TOP; -PREG150C; +atropine 0.1mg/ml 10ml syringe ONE; +calcium chloride 100 MG/1 ML inj IV ONE; +epiNEPHrine 0.1mg/ml 10ml syringe ONE; +etomidate 2mg/ml inj. ONE; +rocuronium 10mg/ml inj IV ONE; +sodium bicarbonate (8.4%) 1 mEq/ml syringe ONE
[2020-10-21] MEDS ORDERED: nitroGLYCERIN 0.4mg SUBLingual tab SL ONE (09:58)
[2020-10-21] MEDS ORDERED: nitroGLYCERIN 0.4mg SUBLingual tab SL PRN (10:00)
--- NOTE | 2020-10-21 10:00 | NUR ---
RT AT BEDSIDE, PLACED PATIENT ON BIPAP FIO2 100%.
[2020-10-21] MEDS ORDERED: nitroGLYCERIN-Tridil 50MG/D5W 250 ML IV SCH (10:10)
--- NOTE | 2020-10-21 10:10 | NUR ---
STONE RUBBER AT BEDSIDE.
[2020-10-21 10:13] LABS: EOSINOPHILS % (AUTO) 0 % (0-6); HEMATOCRIT 34.7 % (35.0-45.0); HEMOGLOBIN 10.9 g/dl (12.0-16.0); RED BLOOD COUNT 3.96 X10'6 (4.20-5.60)
[2020-10-21 10:15] LABS: BASOPHILS # (AUTO) 0.4 X10'3 (0-0.2); BASOPHILS % (AUTO) 1.4 % (0-1); LYMPHOCYTES % (AUTO) 39.4 % (21-51); MEAN CORPUSCULAR HEMOGLOBIN 27.4 PG (27.0-31.0); MEAN CORPUSCULAR HGB CONC 31.3 g/dL (33.0-36.5); MEAN CORPUSCULAR VOLUME 87.5 FL (78-98); MONOCYTES # (AUTO) 1.3 X10'3 (0-0.9); MONOCYTES % (AUTO) 4.4 % (2-12); NEUTROPHILS # (AUTO) 16.7 X10'3 (1.8-7.7); NEUTROPHILS % (AUTO) 54.8 % (42-75); PLATELET COUNT 190 X10'3 (140-440); RED CELL DISTRIBUTION WIDTH 29.6 % (11.5-14.5)
--- NOTE | 2020-10-21 10:17 | NUR ---
DR VALDEZ AWARE OF BP 96/44, HR 128, ORDERS RECEIVED, PATIENT RR IMPROVED TO 28 ON BIPAP FIO2 100%.
[2020-10-21] MEDS ORDERED: furosemide 10 MG/1 ML 10ml inj IV ONE (10:20)
[2020-10-21] MEDS ORDERED: diltiazem 5mg/ml 5ml inj. IV ONE (10:20)
--- NOTE | 2020-10-21 10:20 | NUR ---
DR VALDEZ AWARE OF BP 88/39, PER MD HOLD CARDIZEM UNTIL SBP >90 (SEE EMAR) AND GIVE LASIX PER ORDER (SEE EMAR).
[2020-10-21 10:21] LABS: ABG BASE EXCESS -8.3 mmol/L (-2.0-2.0); ABG HCO3 18.4 mmol/L (22.0-26.0); ABG OXYGEN SATURATION 99.3 % (94-97); ABG PCO2 (T) 41.5 mmHg (32.0-45.0); ABG PO2 (T) 294.3 mmHg (75.0-100.0); ALLEN'S TEST POSITIVE; FCOHb 0.2 % (0.0-3.9); FMetHb 0.4 % (0.0-1.5); FO2Hb 98.7 % (94-97); PATIENT TEMPERATURE 36.7; RESPIRATORY RATE 20 b/min; TOTAL HEMOGLOBIN 11.8 G/dl (12.0-16.0)
[2020-10-21 10:27] LABS: ALANINE AMINOTRANSFERASE 14 U/L (12-78); ALBUMIN 3.4 G/DL (3.4-5.0); ALBUMIN/GLOBULIN RATIO 0.8 (1.1-1.5); ALKALINE PHOSPHATASE 63 IU/L (46-116); ANION GAP 12 (8-16); ASPARTATE AMINO TRANSFERASE 16 U/L (10-37); BILIRUBIN,TOTAL 0.6 MG/DL (0.1-1.0); BLOOD UREA NITROGEN 24 MG/DL (7-18); BUN/CREATININE RATIO 13.5 (6.6-38.0); CALCIUM 8.8 MG/DL (8.5-10.1); CHLORIDE 106 MMOL/L (99-107); CREATININE 1.78 MG/DL (0.40-0.90); GLUCOSE 227 MG/DL (70-104); POTASSIUM 4.3 MMOL/L (3.5-5.1); SODIUM 140 MMOL/L (135-145); TOTAL CARBON DIOXIDE 21.6 MMOL/L (24-32); TOTAL PROTEIN 7.7 G/DL (6.4-8.2); eGFR 28 ML/MIN
--- NOTE | 2020-10-21 10:33 | NUR ---
DR VALDEZ IN TO RE ASSESS PATIENT, INFORMED HIM PATIENT HAS HAD SUBSTERNAL/EPIGASTRIC PAIN X2 DAYS WITH NO RELIEF AFTER NITRO SL (SEE EMAR).
--- NOTE | 2020-10-21 10:50 | NUR ---
Pt with RR down to 25, tolerating BIPAP. Steward placed without difficulty. Pt c/o epigastric chest pain, MD notified.
[2020-10-21 10:56] LABS: CLARITY,URINE CLOUDY (Clear); COLOR,URINE YELLOW (Yellow); GLUCOSE, URINE NEGATIVE (Neg); KETONES,URINE NEGATIVE (Neg); LEUKOCYTE ESTERASE ,URINE NEGATIVE (Neg); NITRITES, URINE NEGATIVE (Neg); OCCULT BLOOD,URINE SMALL (Neg); PH,URINE 5.5 (4.8-8.0); PROTEIN,URINE >=300 mg/dl (Neg)
[2020-10-21] MEDS ORDERED: piperacillin/tazo 3.375gm/50ml 50 ML IV ONE (11:05)
[2020-10-21] MEDS ORDERED: sucralfate 1gm/10ml UD suspension PO STA (11:21)
[2020-10-21] MEDS ORDERED: mag hydrox/Alum hydrox/simeth 30ml oral suspension PO ONE (11:25)
[2020-10-21] MEDS ORDERED: normal saline 1000ML IV soln IV ONE (11:25)
[2020-10-21] MEDS ORDERED: pantoprazole 40 MG vial IV ONE (11:25)
[2020-10-21] MEDS ORDERED: LIDOcaine Viscous 15ml cup MM ONE (11:25)
[2020-10-21 11:39] LABS: BACTERIA,URINE 1+ /HPF (Neg); RBC,URINE 0-2 /HPF (0-2); SQUAMOUS EPITHELIAL CELL,UR MANY /LPF (FEW); UA COLLECTION TYPE STRAIGHT CATH
[2020-10-21 11:40] LABS: AMORPHOUS URATES 4+; WBC,URINE 0-4 /HPF (0-4)
[2020-10-21 11:43] LABS: TOTAL CELLS COUNTED 100
[2020-10-21 12:08] LABS: ANISOCYTOSIS 3+; GIANT PLATELET FEW; LARGE PLATELETS FEW; PLATELET ESTIMATE NORMAL
[2020-10-21 12:09] LABS: SCHISTOCYTES FEW
[2020-10-21] MEDS ORDERED: methylPREDNISolone sod succ 125mg/2ml vial IV ONE (12:10)
[2020-10-21] MEDS ORDERED: CHOL10008 PO (12:39)
[2020-10-21] MEDS ORDERED: FOLI-91 PO (12:39)
--- NOTE | 2020-10-21 12:42 | NUR ---
Pt feeling much better, talking to me. Lab at bedside to draw second set of cultures.
[2020-10-21] MEDS ORDERED: magnesium Cl slow-release 64mg tablet PO PRN (13:10)
[2020-10-21] MEDS ORDERED: potassium CL 10mEq/100ml bag 100 ML IV PRN ×2 (13:10)
[2020-10-21] MEDS ORDERED: magnesium hydroxide 30ml (MOM) UD suspension PO PRN ×2 (13:10→21:15)
[2020-10-21] MEDS ORDERED: ondansetron/PF 4mg/2ml inj IV PRN (13:10)
[2020-10-21] MEDS ORDERED: acetaminophen 650mg rectal suppository RC PRN (13:10)
[2020-10-21] MEDS ORDERED: acetaminophen 325mg tablet PO PRN ×4 (13:10→21:15)
[2020-10-21] MEDS ORDERED: diphenhydrAMINE 25mg capsule PO PRN (13:10)
[2020-10-21] MEDS ORDERED: bisacodyl 10mg suppository rectal RC PRN (13:10)
[2020-10-21] MEDS ORDERED: magnesium 2GM in 50ml NS 50 ML IV PRN (13:10)
[2020-10-21] MEDS ORDERED: potassium Cl 20 mEq SR tablet PO PRN ×2 (13:10)
[2020-10-21] MEDS ORDERED: magnesium 4gm in 100ml NS 100 ML IV PRN (13:10)
[2020-10-21] MEDS ORDERED: ipratropium/albuterol 3ml nebule NEB PRN ×2 (13:10→21:55)
[2020-10-21] MEDS ORDERED: mag hydrox/Alum hydrox/simeth 30ml oral suspension PO PRN (13:10)
--- NOTE | 2020-10-21 13:10 | NUR ---
Attempting still to draw repeat labs, pt very difficult stick, multiple people working to get blood.
--- NOTE | 2020-10-21 13:28 | NUR ---
SPOKE WITH TAZ RT REGARDING PATIENT OFF BIPAP FOR NM, PER RT PATIENT MAY BE PLACED ON 6L NC WITH O2 SATURATION EVALUATION.
[2020-10-21] MEDS: linezolid 600mg/300ml PREMIX 300 ML IV SCH ×2 (13:41→23:15)
[2020-10-21] MEDS: normal saline 1000ml 1,000 ML IV SCH ×2 (13:41→21:20)
[2020-10-21 14:05] LABS: D-DIMER 2.99 MG/L FEU (0-0.50)
[2020-10-21] MEDS: methylPREDNISolone sod succ 125mg/2ml vial IV SCH ×2 (14:05→21:20)
--- NOTE | 2020-10-21 14:12 | NUR ---
CALL TO [facility] AT THIS TIME, SPOKE WITH MARILIN, INFORMED HER PATIENT UNABLE TO BE OFF OF BIPAP OR LIE FLAT, DR VALDEZ MADE AWARE.
[2020-10-21 14:14] LABS: HEMOGLOBIN A1C 5.5 % (4.5-6.2)
--- NOTE | 2020-10-21 14:57 | NUR ---
DR TOMLIN MADE AWARE OF 3 HR TROP 9.71MD TO ENTER ORDERS.
[2020-10-21] MEDS: ipratropium/albuterol 3ml nebule NEB SCH ×3 (15:00→22:43)
[2020-10-21] MEDS ORDERED: heparin 10,000 units/1 ML INJ IV PRN (15:00)
[2020-10-21] MEDS ORDERED: heparin 10,000 units/1 ML INJ IV ONE (15:00)
[2020-10-21] MEDS ORDERED: heparin 25,000 UNIT/250ml bag 250 ML IV SCH (15:00)
[2020-10-21 15:53] LABS: PARTIAL THROMBOPLASTIN TIME 27 SECONDS (22-32)
[2020-10-21] MEDS ORDERED: sennosides 8.6mg tablet PO PRN (16:00)
[2020-10-21] MEDS ORDERED: acetylcysteine 200 MG/ml 4ml vial PO SCH (16:00)
[2020-10-21] MEDS ORDERED: atorvastatin 20mg tablet PO SCH (16:00)
[2020-10-21] MEDS: diltiazem CD 180mg cap (once-daily) PO SCH (16:00)
[2020-10-21] MEDS ORDERED: piperacillin/tazo 3.375gm/50ml 50 ML IV SCH ×2 (16:00→16:28)
[2020-10-21] MEDS ORDERED: aspirin 325mg tablet PO ONE (16:05)
[2020-10-21 16:14] LABS: BASOPHILS # (AUTO) 0.1 X10'3 (0-0.2); BASOPHILS % (AUTO) 0.5 % (0-1); EOSINOPHILS % (AUTO) 0 % (0-6); HEMATOCRIT 31.9 % (35.0-45.0); HEMOGLOBIN 10.3 g/dl (12.0-16.0); MONOCYTES # (AUTO) 0.3 X10'3 (0-0.9)
[2020-10-21 16:15] LABS: LYMPHOCYTES # (AUTO) 0.9 X10'3 (1.1-4.8); LYMPHOCYTES % (AUTO) 4.4 % (21-51); MEAN CORPUSCULAR HEMOGLOBIN 28.2 PG (27.0-31.0); MEAN CORPUSCULAR HGB CONC 32.3 g/dL (33.0-36.5); MEAN CORPUSCULAR VOLUME 87.1 FL (78-98); MEAN PLATELET VOLUME 8.5 FL (7.4-10.4); MONOCYTES % (AUTO) 1.6 % (2-12); NEUTROPHILS # (AUTO) 18.4 X10'3 (1.8-7.7); NEUTROPHILS % (AUTO) 93.5 % (42-75); PLATELET COUNT 132 X10'3 (140-440); RED BLOOD COUNT 3.66 X10'6 (4.20-5.60); RED CELL DISTRIBUTION WIDTH 29.1 % (11.5-14.5); WHITE BLOOD COUNT 19.7 X10'3 (4.5-11.0)
[2020-10-21] MEDS: tirofiban 5mg in NS 100mL 100 ML IV SCH (16:36)
[2020-10-21 16:58] LABS: PLATELET ESTIMATE DECREASED
[2020-10-21 16:59] LABS: ANISOCYTOSIS 3+; SCHISTOCYTES FEW
--- NOTE | 2020-10-21 17:04 | NUR ---
PHONE CALL TO [phone] TO GIVE UPDATE, TO COME TO BEDSIDE TO SEE PATIENT PRIOR TO DEPARTURE TO BLIND [facility]ANER, CECELIA ORTIZ AWARE.
--- NOTE | 2020-10-21 17:38 | NUR ---
Dr Harding speaking with at bedside at this time, all questions and concerns addressed, report to floor nurse called by TAL Licea.
[2020-10-21] MEDS ORDERED: nitroGLYCERIN-Tridil 50MG/D5W 250 ML IV ONE (17:41)
[2020-10-21] MEDS ORDERED: iohexol 350MG/ML 100ml bottle IV ONE ×3 (17:42→19:21)
[2020-10-21] MEDS ORDERED: LIDOcaine 1% (10mg/ml)w/preservative injection 20ml MDV ONE (17:42)
[2020-10-21] MEDS ORDERED: iohexol 350 MG/ML 50ML vial IV ONE (17:42)
[2020-10-21] MEDS ORDERED: fentaNYL/PF 50MCG/1 ML 2ML syringe ONE (17:42)
[2020-10-21] MEDS ORDERED: midazolam 2 mg/2 ml injection ONE ×2 (17:42→18:56)
[2020-10-21] MEDS ORDERED: heparin 1,000unit/ml 10ml vial 10 ML ONE (17:42)
--- NOTE | 2020-10-21 18:02 | NUR ---
PATIENT TO RADIO INSTALLER AT THIS TIME VIA [facility], REPORT GIVEN TO RN CHERI, RT TAZ AT BEDSIDE, ANNIE AT BEDSIDE, STATES HE WILL BE OUT IN CAR TO WAIT FOR UPDATE S/P PROCEDURE, DR LAGOS AWARE.
[2020-10-21] MEDS ORDERED: heparin 1,000 UNITS/NS 500ml 500 ML ONE (19:18)
[2020-10-21] MEDS ORDERED: tirofiban 5mg in NS 100mL 100 ML IV ONE (19:56)
[2020-10-21 20:01] LABS: ISTAT HGB ART 11.9 g/dl (12.0-16.0); ISTAT Hct ART 35 %PCV (35-48); ISTAT O2 SATURATION ARTERIAL 99 % (95-98); ISTAT SOURCE ART
[2020-10-21] MEDS ORDERED: ticagrelor 90mg tablet ONE (20:05)
[2020-10-21] MEDS ORDERED: pregabalin 75mg capsule PO SCH (21:00)
[2020-10-21] MEDS ORDERED: temazepam 15mg capsule PO PRN (21:00)
[2020-10-21] MEDS ORDERED: traZODone 50mg tablet PO SCH (21:00)
[2020-10-21] MEDS: heparin, porcine 5000 units/ml vial SQ SCH (21:05)
[2020-10-21] MEDS ORDERED: proCHLORperazine 10 MG/2 ml inj IV PRN (21:15)
[2020-10-21] MEDS ORDERED: HYDROcodone/acetaminophen 10/325mg tab PO PRN ×2 (21:15)
[2020-10-21] MEDS ORDERED: OXAZEpam 15mg capsule PO PRN (21:15)
[2020-10-21] MEDS ORDERED: cyclobenzaprine 10mg tablet PO PRN (21:15)
--- NOTE | 2020-10-21 21:15 | NUR ---
Report received from Ana PARADA and questions answered. Pt arrived to room 2040 at 2040 transported by Ana PARADA and laboratory equipment installer crew. The pt was placed on our monitor and oriented to our unit and plan of care. The pt was found to be profoundly hypotensive with increased work of breathing on the bipap. A fluid bolus was started, labs were drawn and Dr. Estrada was called and orders were received.
[2020-10-21] MEDS ORDERED: NORepinephrine 8mg/ 250ml NS 250 ML IV ONE (21:17)
[2020-10-21 21:20] LABS: BASOPHILS % (AUTO) 0.4 % (0-1); EOSINOPHILS % (AUTO) 0 % (0-6); MEAN CORPUSCULAR HEMOGLOBIN 27.6 PG (27.0-31.0); MEAN CORPUSCULAR HGB CONC 32.2 g/dL (33.0-36.5); MEAN CORPUSCULAR VOLUME 85.8 FL (78-98); MEAN PLATELET VOLUME 9.4 FL (7.4-10.4); MONOCYTES # (AUTO) 0.2 X10'3 (0-0.9); MONOCYTES % (AUTO) 1.3 % (2-12); NEUTROPHILS # (AUTO) 11.2 X10'3 (1.8-7.7); NEUTROPHILS % (AUTO) 90.3 % (42-75); PLATELET COUNT 133 X10'3 (140-440); RED BLOOD COUNT 2.47 X10'6 (4.20-5.60); RED CELL DISTRIBUTION WIDTH 29.1 % (11.5-14.5); WHITE BLOOD COUNT 12.4 X10'3 (4.5-11.0)
[2020-10-21 21:21] LABS: ALANINE AMINOTRANSFERASE 16 U/L (12-78); ALBUMIN/GLOBULIN RATIO 0.7 (1.1-1.5); ALKALINE PHOSPHATASE 42 IU/L (46-116); ANION GAP 12 (8-16); ASPARTATE AMINO TRANSFERASE 82 U/L (10-37); BILIRUBIN,TOTAL 0.4 MG/DL (0.1-1.0); BLOOD UREA NITROGEN 24 MG/DL (7-18); CALCIUM 6.6 MG/DL (8.5-10.1); CHLORIDE 109 MMOL/L (99-107); CREATININE 1.71 MG/DL (0.40-0.90); GLUCOSE 291 MG/DL (70-104); MAGNESIUM 1.5 MG/DL (1.5-2.4); PHOSPHORUS 3.6 MG/DL (2.3-4.5); POTASSIUM 5.2 MMOL/L (3.5-5.1); SODIUM 138 MMOL/L (135-145); TOTAL CARBON DIOXIDE 17.3 MMOL/L (24-32); TOTAL PROTEIN 4.8 G/DL (6.4-8.2); eGFR 29 ML/MIN
[2020-10-21 21:23] LABS: HEMATOCRIT 21.2 % (35.0-45.0); HEMOGLOBIN 6.8 g/dl (12.0-16.0)
[2020-10-21] MEDS ORDERED: NORepinephrine 8mg/ 250ml NS 250 ML IV SCH (21:25)
[2020-10-21] MEDS ORDERED: sodium bicarbonate (8.4%) inj. 150 MEQ in dextrose 5%-water 1,000 ML IV SCH (21:25)
[2020-10-21 21:35] LABS: ABG BASE EXCESS -10.7 mmol/L (-2.0-2.0); ABG HCO3 14.1 mmol/L (22.0-26.0); ABG OXYGEN SATURATION 97.3 % (94-97); ABG PO2 (T) 107.2 mmHg (75.0-100.0); FCOHb 0.3 % (0.0-3.9); FMetHb 0.2 % (0.0-1.5); FO2Hb 96.8 % (94-97); PATIENT TEMPERATURE 36.6; RESPIRATORY RATE 20 b/min; TOTAL HEMOGLOBIN 8.5 G/dl (12.0-16.0)
[2020-10-21] MEDS ORDERED: HYDROmorphone inj. 0.5 MG/0.5 ML DISP.SYRIN IV PRN (21:55)
[2020-10-21] MEDS ORDERED: midazolam 100mg in NS 100ml 100 ML IV PRN (21:55)
[2020-10-21 22:05] LABS: ANISOCYTOSIS 3+; PLATELET ESTIMATE DECREASED; TEAR DROP CELLS FEW
[2020-10-21 22:07] LABS: HYPOCHROMASIA 1+; LARGE PLATELETS FEW; SCHISTOCYTES FEW
[2020-10-21 22:08] LABS: ROULEAUX 1+
--- NOTE | 2020-10-21 22:15 | NUR ---
Due to increased work of breathing and pt's respiratory distress the pt was intubated by Dr. Cuba. Intubation went well, 20mg Etomidate and 100mg of Rocuronium was given, first pass success, without hypoxia.
--- NOTE | 2020-10-21 22:30 | NUR ---
Pt's , Kathy, was called and updated on pt status
[2020-10-21] MEDS ORDERED: sodium bicarbonate (8.4%) 1 mEq/ml syringe IV ONE (22:35)
[2020-10-21] MEDS ORDERED: calcium chloride 100 MG/1 ML inj IV ONE ×2 (22:36→22:40)
[2020-10-21] MEDS ORDERED: sodium bicarbonate (8.4%) 1 mEq/ml syringe ONE (22:36)
[2020-10-21] MEDS ORDERED: sodium bicarbonate (8.4%) inj. 150 MEQ in sodium chloride 0.45% 850 ML IV SCH (22:40)
[2020-10-21 22:41] LABS: ABG BASE EXCESS -18.8 mmol/L (-2.0-2.0); ABG HCO3 9.9 mmol/L (22.0-26.0); ABG OXYGEN SATURATION 94.7 % (94-97); ABG PCO2 (T) 35.3 mmHg (32.0-45.0); ABG PO2 (T) 102.5 mmHg (75.0-100.0); FCOHb 0.3 % (0.0-3.9); FMetHb 0.5 % (0.0-1.5); FO2Hb 93.9 % (94-97); PATIENT TEMPERATURE 36.6; PEEP 5 cm H2O; TIDAL VOLUME 400 mL; TOTAL HEMOGLOBIN 6.2 G/dl (12.0-16.0)
[2020-10-21] MEDS: NORepinephrine 8mg/ 250ml NS 250 ML IV PRN (23:09)
[2020-10-21] MEDS: sodium bicarbonate (8.4%) inj. 150 MEQ in sodium chloride 0.45% 1,000 ML IV SCH (23:17)
[2020-10-21] MEDS: triamcinolone acet 0.1% cream 15gm TP SCH (23:21)
[2020-10-21] MEDS: piperacillin/tazo 3.375gm/50ml 50 ML IV SCH (23:22)
[2020-10-22] VITALS (20 sets, daily range): BP systolic 74–147; BP diastolic 17–64
[2020-10-22] MEDS ORDERED: DOPamine 400mg/D5W 250ml 250 ML IV ONE (00:26)
[2020-10-22] MEDS ORDERED: DOPamine 400mg/D5W 250ml 250 ML IV PRN ×2 (00:35→09:06)
[2020-10-22] MEDS: NORepinephrine 8mg/ 250ml NS 250 ML IV PRN ×3 (00:38→03:23)
--- NOTE | 2020-10-22 01:30 | NUR ---
Pt was taken to CT once blood pressure was moderately stable, pt tolerated CT well, results given to Kailey MONTERROSO and Natalie VILLAFANA. Pt's Levophed infusing at 0.999mcg/kg/min though venous sheath with a goal to maintain MAP greater than 60mmHg. At 0120 pt's heart rate dropped from 120's to 60bpm quickly and then preceded to kerri into the 50's with a rhythm change to 2nd degree type 2 heart block and 3rd degree heart block. 0.5mg of atropine was given at 0120 which brought the heart rate up to 60bpm. Within 5 mins the pt's heart rate started trending down again so another 0.5mg of atropine was given along with 1mg of epinephrine and a dopamine drip was started along with state labs drawn. Kailey MONTERROSO was updated.
[2020-10-22 01:41] LABS: BASOPHILS # (AUTO) 0.2 X10'3 (0-0.2); BASOPHILS % (AUTO) 0.6 % (0-1); RED BLOOD COUNT 3.26 X10'6 (4.20-5.60)
[2020-10-22 01:43] LABS: EOSINOPHILS % (AUTO) 0 % (0-6); HEMATOCRIT 30.7 % (35.0-45.0); HEMOGLOBIN 9.6 g/dl (12.0-16.0); LYMPHOCYTES # (AUTO) 4.7 X10'3 (1.1-4.8); LYMPHOCYTES % (AUTO) 18.7 % (21-51); MEAN CORPUSCULAR HEMOGLOBIN 29.6 PG (27.0-31.0); MEAN CORPUSCULAR HGB CONC 31.5 g/dL (33.0-36.5); MEAN CORPUSCULAR VOLUME 94.2 FL (78-98); MEAN PLATELET VOLUME 10.1 FL (7.4-10.4); MONOCYTES # (AUTO) 1.1 X10'3 (0-0.9); MONOCYTES % (AUTO) 4.6 % (2-12); NEUTROPHILS # (AUTO) 18.9 X10'3 (1.8-7.7); NEUTROPHILS % (AUTO) 76.1 % (42-75); PLATELET COUNT 128 X10'3 (140-440); RED CELL DISTRIBUTION WIDTH 19.1 % (11.5-14.5); WHITE BLOOD COUNT 24.9 X10'3 (4.5-11.0)
[2020-10-22] MEDS ORDERED: dextrose 50%-water 50ml dispensing syringe IV PRN (01:55)
[2020-10-22 01:59] LABS: ALANINE AMINOTRANSFERASE 72 U/L (12-78); ALBUMIN 1.8 G/DL (3.4-5.0); ALBUMIN/GLOBULIN RATIO 0.7 (1.1-1.5); ALKALINE PHOSPHATASE 49 IU/L (46-116); ANION GAP 21 (8-16); ASPARTATE AMINO TRANSFERASE 185 U/L (10-37); BILIRUBIN,TOTAL 1.3 MG/DL (0.1-1.0); BLOOD UREA NITROGEN 24 MG/DL (7-18); BUN/CREATININE RATIO 11.2 (6.6-38.0); CALCIUM 6.8 MG/DL (8.5-10.1); CHLORIDE 110 MMOL/L (99-107); CREATININE 2.14 MG/DL (0.40-0.90); SODIUM 142 MMOL/L (135-145); TOTAL PROTEIN 4.3 G/DL (6.4-8.2); eGFR 23 ML/MIN
[2020-10-22 02:09] LABS: PHOSPHORUS 9.4 MG/DL (2.3-4.5)
[2020-10-22 02:16] LABS: GLUCOSE 490 MG/DL (70-104)
[2020-10-22 02:17] LABS: PARTIAL THROMBOPLASTIN TIME 86 SECONDS (22-32)
[2020-10-22] MEDS ORDERED: sodium polystyrene sulfonate 15gm/60ml oral suspension PO ONE (02:20)
[2020-10-22] MEDS ORDERED: calcium chloride 100 MG/1 ML inj IV ONE ×2 (02:20→02:25)
[2020-10-22] MEDS ORDERED: sodium bicarbonate (8.4%) 1 mEq/ml syringe IV ONE ×2 (02:20→02:25)
[2020-10-22] MEDS ORDERED: albuterol 2.5 MG/3 ML nebule CONTNEB ONE (02:25)
[2020-10-22] MEDS: Insulin Reg/NS 100units/100mL 100 ML IV SCH ×2 (02:39→12:21)
[2020-10-22] MEDS: ipratropium/albuterol 3ml nebule NEB SCH ×4 (02:43→14:53)
[2020-10-22] MEDS: methylPREDNISolone sod succ 125mg/2ml vial IV SCH ×3 (02:59→13:30)
[2020-10-22 03:10] LABS: ABG HCO3 10.7 mmol/L (22.0-26.0); ABG OXYGEN SATURATION 87.8 % (94-97); ABG PCO2 (T) 42.6 mmHg (32.0-45.0); ABG PO2 (T) 61.2 mmHg (75.0-100.0); FCOHb 0.3 % (0.0-3.9); FMetHb 0.2 % (0.0-1.5); FO2Hb 87.4 % (94-97); PATIENT TEMPERATURE 35.6; PEEP 5 cm H2O; RESPIRATORY RATE 22 b/min; TIDAL VOLUME 400 mL; TOTAL HEMOGLOBIN 11.1 G/dl (12.0-16.0)
[2020-10-22] MEDS: piperacillin/tazo 3.375gm/50ml 50 ML IV SCH ×2 (03:17→11:34)
[2020-10-22] MEDS ORDERED: rocuronium 10mg/ml inj IV ONE (03:20)
[2020-10-22] MEDS ORDERED: etomidate 2mg/ml inj. IV ONE (03:20)
[2020-10-22] MEDS: tirofiban 5mg in NS 100mL 100 ML IV SCH ×2 (03:21→11:34)
[2020-10-22 03:32] LABS: PLATELET ESTIMATE DECREASED; TOTAL CELLS COUNTED 100
[2020-10-22 03:33] LABS: ANISOCYTOSIS 2+
[2020-10-22 03:34] LABS: BURR CELLS 2+
[2020-10-22 03:35] LABS: POLYCHROMASIA FEW; TEAR DROP CELLS FEW
[2020-10-22 03:36] LABS: LARGE PLATELETS FEW; SMUDGE CELLS FEW
[2020-10-22 03:37] LABS: HYPOCHROMASIA 1+; SCHISTOCYTES FEW
[2020-10-22 04:51] LABS: NUCLEATED RED BLOOD CELLS 8 /100WBC (0-0)
[2020-10-22] MEDS: NOREPINEPHRINE IV PRN ×2 (05:00→11:03)
[2020-10-22] MEDS: NORMAL SALINE IV PRN ×2 (05:00→11:03)
[2020-10-22 05:11] LABS: ABG BASE EXCESS -22.6 mmol/L (-2.0-2.0); ABG OXYGEN SATURATION 88.7 % (94-97); ABG PCO2 (T) 40.4 mmHg (32.0-45.0); ABG PO2 (T) 65.2 mmHg (75.0-100.0); FCOHb 0.4 % (0.0-3.9); FMetHb 0.3 % (0.0-1.5); FO2Hb 88.1 % (94-97); PEEP 8 cm H2O; TIDAL VOLUME 400 mL; TOTAL HEMOGLOBIN 13.3 G/dl (12.0-16.0)
--- NOTE | 2020-10-22 05:12 | NUR ---
Pt doing fairly well, still on Levophed at 0.999mcg/kg/min. Pt has not woken up, not on sedation, no gag present at this time, no cough with suctioning, Kailey SURVEYOR CHAIN HELPER aware.
[2020-10-22 05:15] LABS: MONOCYTES % (MANUAL) 5 % (2-12)
[2020-10-22 06:16] LABS: ANION GAP 25 (8-16); BLOOD UREA NITROGEN 28 MG/DL (7-18); BUN/CREATININE RATIO 10.9 (6.6-38.0); CHLORIDE 111 MMOL/L (99-107); CREATININE 2.56 MG/DL (0.40-0.90); GLUCOSE 362 MG/DL (70-104); MAGNESIUM 2.1 MG/DL (1.5-2.4); POTASSIUM 5.7 MMOL/L (3.5-5.1); SODIUM 147 MMOL/L (135-145); eGFR 18 ML/MIN
[2020-10-22 06:19] LABS: PHOSPHORUS 10.6 MG/DL (2.3-4.5)
[2020-10-22 06:20] LABS: TOTAL CARBON DIOXIDE 11.2 MMOL/L (24-32)
--- NOTE | 2020-10-22 06:30 | NUR ---
Problems reprioritized. Patient report given, questions answered & plan of care reviewed with Tiara PARADA.
[2020-10-22] MEDS: insulin Lispro (HumaLOG) vial - multi-dose SQ PRN ×6 (07:09→14:07)
[2020-10-22] MEDS: K and/or MAG REPLACEMENT MC SCH ×2 (07:11→07:19)
[2020-10-22 07:27] LABS: BASOPHILS # (AUTO) 0.5 X10'3 (0-0.2); BASOPHILS % (AUTO) 0.8 % (0-1); EOSINOPHILS # (AUTO) 0.3 X10'3 (0-0.9); EOSINOPHILS % (AUTO) 0.4 % (0-6); HEMATOCRIT 38.6 % (35.0-45.0); LYMPHOCYTES # (AUTO) 6.2 X10'3 (1.1-4.8); LYMPHOCYTES % (AUTO) 9.4 % (21-51); MEAN CORPUSCULAR HEMOGLOBIN 28.2 PG (27.0-31.0); MEAN CORPUSCULAR HGB CONC 31.2 g/dL (33.0-36.5); MEAN CORPUSCULAR VOLUME 90.5 FL (78-98); MEAN PLATELET VOLUME 9.1 FL (7.4-10.4); MONOCYTES # (AUTO) 5.4 X10'3 (0-0.9); MONOCYTES % (AUTO) 8.3 % (2-12); NEUTROPHILS # (AUTO) 53.3 X10'3 (1.8-7.7); NEUTROPHILS % (AUTO) 81.1 % (42-75); PLATELET COUNT 143 X10'3 (140-440); RED BLOOD COUNT 4.26 X10'6 (4.20-5.60); RED CELL DISTRIBUTION WIDTH 18.5 % (11.5-14.5)
[2020-10-22] MEDS ORDERED: NORepinephrine 32 MG in normal saline 250ml IV soln 218 ML IV PRN (07:29)
[2020-10-22 07:45] LABS: WHITE BLOOD COUNT 65.8 X10'3 (4.5-11.0)
[2020-10-22] MEDS ORDERED: losartan 50mg tablet PO SCH (08:00)
[2020-10-22] MEDS ORDERED: medroxyprogesterone acet. 2.5mg tablet PO SCH (08:00)
[2020-10-22] MEDS ORDERED: ticagrelor 90mg tablet PO SCH (08:00)
[2020-10-22] MEDS ORDERED: aspirin 81mg tab.chew PO SCH (08:00)
[2020-10-22] MEDS ORDERED: docusate sod 100mg capsule PO SCH (08:00)
[2020-10-22] MEDS ORDERED: pregabalin 75mg capsule PO SCH (08:00)
[2020-10-22] MEDS ORDERED: furosemide 20 MG/2 ML vial IV SCH (08:00)
[2020-10-22] MEDS ORDERED: acetylcysteine sol. 200 MG/ML 4ml vial PO SCH (08:00)
[2020-10-22] MEDS ORDERED: pantoprazole 40mg Tablet.DR PO SCH (08:00)
[2020-10-22] MEDS ORDERED: potassium Cl 20 mEq SR tablet PO SCH (08:00)
[2020-10-22] MEDS ORDERED: atorvastatin 20mg tablet PO SCH (08:00)
[2020-10-22] MEDS: linezolid 600mg/300ml PREMIX 300 ML IV SCH (08:05)
[2020-10-22] MEDS ORDERED: aspirin 81mg tablet.DR PO SCH (08:30)
[2020-10-22] MEDS ORDERED: vasopressin inj. 40 UNIT in normal saline 50ml IV soln 38 ML IV SCH (08:50)
[2020-10-22] MEDS ORDERED: midazolam 100mg in NS 100ml 100 ML IV PRN ×2 (09:07→15:25)
[2020-10-22 09:42] LABS: NUCLEATED RED BLOOD CELLS 2 /100WBC (0-0); TOTAL CELLS COUNTED 100
[2020-10-22 09:43] LABS: GIANT PLATELET FEW; LARGE PLATELETS MODERATE; PLATELET ESTIMATE NORMAL; POLYCHROMASIA FEW
[2020-10-22 09:44] LABS: ANISOCYTOSIS 2+; BURR CELLS 1+
[2020-10-22 09:45] LABS: SMUDGE CELLS 1+
[2020-10-22] MEDS: sodium bicarbonate (8.4%) inj. 150 MEQ in sodium chloride 0.45% 1,000 ML IV SCH (09:46)
[2020-10-22 10:06] LABS: OXYGEN SATURATION (MIXED VEN) 47.8 % (60-80); PO2 MIXED VENOUS (TEMP COR) 28.5 mmHg (35-46)
[2020-10-22] MEDS: diltiazem CD 180mg cap (once-daily) PO SCH (10:12)
[2020-10-22] MEDS: heparin, porcine 5000 units/ml vial SQ SCH (10:12)
[2020-10-22] MEDS: triamcinolone acet 0.1% cream 15gm TP SCH (10:13)
--- NOTE | 2020-10-22 10:30 | NUR ---
Kb Denise () at bedside. Spoke to Dr. Ma about end of life decisions and decided that he would like to go to comfort care once patient's son (sam) makes it to the bedside. Yellow wedding ring with white stones was released to for safe keeping at home.
[2020-10-22 10:56] LABS: WHITE BLOOD COUNT 30.5 X10'3 (4.5-11.0)
--- NOTE | 2020-10-22 11:02 | NUR ---
DM consult: Pt with A1c 5.5%, down from 8.4% in March of last year per records, DM education not warranted at this time. Pt receiving Zyvox, low tyramine nutrition therapy education deferred at this time as pt currently intubated. Cardiac consult: Pt with no recent lipid panel at this time. Pt admitted for NSTEMI with possible acute respiratory failure could be from CHF and COPD exacerbation per H&P. OG tube in place, no TF consult at this time. Recommendations below for if expected prolonged intubation and to receive nutrition support. Noted that pt documented with coffee ground emesis from NG tube. Pt with a low Bert of 11, no documented edema or wounds in physical assessment. Will continue to follow closely. Recommendations: 1) IF TF, continuous Vital High Protein with goal rate of 60 mL/hr. To begin at 20 mL/hr and advance by 20 mL Q8H as tolerated 2) IF TF, additional water flush per MD given CHF 3) IF TF, prealbumin q Tuesday/; daily weights 4) Low tyramine nutrition therapy education following extubation once stable if indicated Addendum: 10/22/20 at [address] Amended: Links added.
[2020-10-22 13:39] LABS: BASOPHILS # (AUTO) 0.5 X10'3 (0-0.2); BASOPHILS % (AUTO) 0.7 % (0-1); EOSINOPHILS % (AUTO) 0 % (0-6); HEMOGLOBIN 11.4 g/dl (12.0-16.0); RED CELL DISTRIBUTION WIDTH 17.9 % (11.5-14.5)
[2020-10-22 13:42] LABS: HEMATOCRIT 36.3 % (35.0-45.0); LYMPHOCYTES # (AUTO) 6.4 X10'3 (1.1-4.8); LYMPHOCYTES % (AUTO) 8.7 % (21-51); MEAN CORPUSCULAR HEMOGLOBIN 27.8 PG (27.0-31.0); MEAN CORPUSCULAR HGB CONC 31.4 g/dL (33.0-36.5); MEAN CORPUSCULAR VOLUME 88.6 FL (78-98); MEAN PLATELET VOLUME 9.1 FL (7.4-10.4); MONOCYTES # (AUTO) 5.8 X10'3 (0-0.9); MONOCYTES % (AUTO) 7.9 % (2-12); NEUTROPHILS # (AUTO) 60.9 X10'3 (1.8-7.7); NEUTROPHILS % (AUTO) 82.7 % (42-75)
[2020-10-22 13:44] LABS: WHITE BLOOD COUNT 73.7 X10'3 (4.5-11.0)
[2020-10-22 13:45] LABS: PLATELET COUNT 124 X10'3 (140-440)
[2020-10-22] MEDS ORDERED: midazolam 2 mg/2 ml injection IV ONE (15:25)
[2020-10-22] MEDS ORDERED: FENTANYL-0.9 % NACL/PF 100 ML IV PRN (15:25)
[2020-10-22] MEDS ORDERED: fentaNYL/PF 50MCG/1 ML 2ML syringe IV PRN (15:25)
--- NOTE | 2020-10-22 15:26 | NUR ---
and son at bedside; both in agreement that the best course of action is to withdraw care. Dr. Ma at bedside with family. Patient will be going to comfort care
--- NOTE | 2020-10-22 15:40 | NUR ---
Noted that pt has been made DNR with comfort care. Will continue to follow per LOS. Recommendations: 1) Bowel care per comfort care measures Addendum: 10/22/20 at [address] Amended: Links added.
--- NOTE | 2020-10-22 16:05 | NUR ---
1540 Patient was extubated to comfort care with family at bedside. 1550 Patient is asystolic; Dr. Ma aware and family told. [id number] [facility] [id number] reference number [id number] [place] called to come and collect patient.
[2020-10-23] MEDS ORDERED: mineral oil/petrolatum ophthal oint EACHEYE SCH (02:00)
== END 2020-10-22 15:50 | disposition expired | DRG 246 ==
LOC: ER 09:49 → ED HOLD 13:10 → EDBEDREQ 14:04 → ICU 2S 20:53
PROVIDERS: ADMIT Family Medicine; ATTEND Family Medicine
PROC: 4A023N8 Measurement of Cardiac Sampling and Pressure, Bilateral, Percutaneous Approach (ICD-10-PCS; principal; 2020-10-21)
PROC: 027034Z Dilation of Coronary Artery, One Artery with Drug-eluting Intraluminal Device, Percutaneous Approach (ICD-10-PCS; 2020-10-21)
PROC: B2111ZZ Fluoroscopy of Multiple Coronary Arteries using Low Osmolar Contrast (ICD-10-PCS; 2020-10-21)
PROC: B3101ZZ Fluoroscopy of Thoracic Aorta using Low Osmolar Contrast (ICD-10-PCS; 2020-10-21)
PROC: B2151ZZ Fluoroscopy of Left Heart using Low Osmolar Contrast (ICD-10-PCS; 2020-10-21)
PROC: 5A09357 Assistance with Respiratory Ventilation, Less than 24 Consecutive Hours, Continuous Positive Airway Pressure (ICD-10-PCS; 2020-10-21)
PROC: 5A1935Z Respiratory Ventilation, Less than 24 Consecutive Hours (ICD-10-PCS; 2020-10-21)
PROC: 0BH17EZ Insertion of Endotracheal Airway into Trachea, Via Natural or Artificial Opening (ICD-10-PCS; 2020-10-21)
PROC: 30233N1 Transfusion of Nonautologous Red Blood Cells into Peripheral Vein, Percutaneous Approach (ICD-10-PCS; 2020-10-21)
DX: I21.09 ST elevation (STEMI) myocardial infarction involving other coronary artery of anterior wall (principal); J96.01 Acute respiratory failure with hypoxia; E87.2 Acidosis; I13.0 Hypertensive heart and chronic kidney disease with heart failure and stage 1 through stage 4 chronic kidney disease, or unspecified chronic kidney disease; N17.9 Acute kidney failure, unspecified; E87.3 Alkalosis; D62 Acute posthemorrhagic anemia; S30.1XXA Contusion of abdominal wall, initial encounter; R57.0 Cardiogenic shock; D72.829 Elevated white blood cell count, unspecified; E11.22 Type 2 diabetes mellitus with diabetic chronic kidney disease; E11.40 Type 2 diabetes mellitus with diabetic neuropathy, unspecified; E66.01 Morbid (severe) obesity due to excess calories; E78.00 Pure hypercholesterolemia, unspecified; E78.5 Hyperlipidemia, unspecified; G89.4 Chronic pain syndrome; I44.7 Left bundle-branch block, unspecified; N18.30 Chronic kidney disease, stage 3 unspecified; J44.9 Chronic obstructive pulmonary disease, unspecified; I50.9 Heart failure, unspecified; K21.9 Gastro-esophageal reflux disease without esophagitis; G47.33 Obstructive sleep apnea (adult) (pediatric); E11.65 Type 2 diabetes mellitus with hyperglycemia; M19.90 Unspecified osteoarthritis, unspecified site; K59.09 Other constipation; Z20.828 Contact with and (suspected) exposure to other viral communicable diseases; Z82.49 Family history of ischemic heart disease and other diseases of the circulatory system; Z87.891 Personal history of nicotine dependence; Z88.5 Allergy status to narcotic agent; Z88.8 Allergy status to other drugs, medicaments and biological substances; Z68.37 Body mass index [BMI] 37.0-37.9, adult; Z90.49 Acquired absence of other specified parts of digestive tract; Z79.899 Other long term (current) drug therapy; Y93.89 Activity, other specified; Y99.8 Other external cause status; S42.391 Other fracture of shaft of right humerus; E87.5 Hyperkalemia
CPT/HCPCS: 93308; 93460; 96365; 96375; 99291; C9606; 36415; 36430; 36600; 70450; 71045; 74176; 76937; 80048; 80053; 81001; 82803; 82810; 82948; 83036; 83605; 83735; 83880; 84100; 84145; 84443; 84484; 85007; 85008; 85014; 85018; 85025; 85347; 85379; 85610; 85730; 86885; 86900; 86901; 86920; 87040; 87070; 87081; 87635; 93005; 93926; 94002; 94003; 94640; 94660; 94760; 94799; 99152; 99153; A6258; A7015; C1725; C1751; C1769; C1874; C1894; C9113; C9803; G0378; J0171; J0461; J1265; J1644; J1815; J1940; J2001; J2020; J2250; J2543; J2930; J3010; J3246; J3490; J7030; J7050; P9016; Q9967